=== PATIENT | male | born 1970 ===

== ENCOUNTER 2020-08-10 07:58 | Outpatient (REF) | payer OTHER, SELFPAY ==
[2020-08-10 10:55] LABS: Hematocrit 45.4 % (42-52); Hemoglobin 14.6 g/dl (14.0-18.0); Mean Corpuscular HGB Conc 32.2 g/dl (31.0-36.0); Mean Corpuscular Hemoglobin 30.1 pg (27.0-33.0); Mean Corpuscular Volume 93.6 fL (80-98); Mean Platelet Volume 10.1 fL (9.4-12.4); Platelet Count 244 X10*3/uL (160-400); Red Blood Count 4.85 X10*6/uL (4.60-5.80); Red Cell Distribution Width 13.2 % (11.0-16.0)
[2020-08-10 11:15] LABS: Alanine Aminotransferase 39 U/L (0-40); Albumin Level 4.3 g/dL (3.5-5.0); Alkaline Phosphatase 91 U/L (39-117); Anion Gap 11 (12-20); Aspartate Amino Transferase 24 U/L (5-37); Bilirubin Total 0.4 mg/dL (0.0-1.0); Blood Urea Nitrogen 19 mg/dL (9-16); Calcium 9.1 mg/dL (8.4-10.2); Carbon Dioxide 31 mmol/L (22-29); Chloride 104 mmol/L (96-108); Cholesterol 307 mg/dL; Estimated Glomerular Filt Rate > 60; Glucose Fasting 94 mg/dL (60-99); HDL Cholesterol 48 mg/dL; LDL Cholesterol Calculated 216 mg/dl; Potassium 4.5 mmol/l (3.3-5.1); Sodium 141 mmol/L (135-145); Total Protein 7.2 g/dL (6.5-8.0); Triglycerides 217 mg/dL
[2020-08-10 11:18] LABS: Creatinine Urine 228.82 mg/dL; Microalbum/Creatinine Ratio Ur 22.2 ug/mg cr
[2020-08-10 11:39] LABS: TSH reflex Free T4 2.08 mIU/mL (0.32-4.0)
== END 2020-08-10 07:59 | disposition home or self-care (01) ==
LOC: HO.WFDLDS 07:58
PROVIDERS: Visit Provider Physician Assistant
DX: I10 Essential (primary) hypertension (principal); E78.5 Hyperlipidemia, unspecified
CPT/HCPCS: 36415; 80053; 80061; 82043; 84443; 85027

== ENCOUNTER 2020-12-13 07:55 | Outpatient (REF) | payer OTHER, SELFPAY ==
[2020-12-13 09:01] LABS: Hematocrit 43.8 % (42-52); Hemoglobin 14.2 g/dl (14.0-18.0); Mean Corpuscular HGB Conc 32.4 g/dl (31.0-36.0); Mean Corpuscular Volume 92.4 fL (80-98); Platelet Count 248 X10*3/uL (160-400); Red Blood Count 4.74 X10*6/uL (4.60-5.80); Red Cell Distribution Width 13.2 % (11.0-16.0); White Blood Count 7.1 X10*3/uL (4.8-10.8)
[2020-12-13 09:16] LABS: Alanine Aminotransferase 37 U/L (0-40); Albumin Level 4.3 g/dL (3.5-5.0); Alkaline Phosphatase 105 U/L (39-117); Anion Gap 12 (12-20); Aspartate Amino Transferase 28 U/L (5-37); Bilirubin Total 0.5 mg/dL (0.0-1.0); Blood Urea Nitrogen 16 mg/dL (9-16); Calcium 9.8 mg/dL (8.4-10.2); Carbon Dioxide 30 mmol/L (22-29); Chloride 103 mmol/L (96-108); Cholesterol 240 mg/dL; Estimated Glomerular Filt Rate > 60; Glucose Fasting 97 mg/dL (60-99); HDL Cholesterol 50 mg/dL; LDL Cholesterol Calculated 160 mg/dl; Potassium 4.5 mmol/L (3.3-5.1); Sodium 140 mmol/L (135-145); Total Protein 7.2 g/dL (6.5-8.0); Triglycerides 150 mg/dL
[2020-12-13 09:22] LABS: TSH reflex Free T4 1.82 uIU/mL (0.32-4.0)
[2020-12-13 10:35] LABS: Creatinine Urine 191.78 mg/dL; Microalbum/Creatinine Ratio Ur 22.9 ug/mg cr
== END 2020-12-13 07:56 | disposition home or self-care (01) ==
LOC: HO.LAB 07:55
PROVIDERS: PCP Physician Assistant; Visit Provider Physician Assistant
DX: E78.2 Mixed hyperlipidemia (principal); I10 Essential (primary) hypertension
CPT/HCPCS: 36415; 80053; 80061; 82043; 84443; 85027

== ENCOUNTER 2021-01-27 08:16 | Outpatient (REF) | payer OTHER, SELFPAY ==
--- NOTE | ~2021-01-27 | XR_ITS ---
EXAMINATION: XR ELBOW, RIGHT CLINICAL INFORMATION: Pain. COMPARISON: None TECHNIQUE: AP, lateral, and oblique views of the right elbow. FINDINGS: There is no visible acute fracture, dislocation or loose bodies. There are moderate size enthesophytes along the anterior coronoid process and olecranon process. No abnormal joint effusion seen. XR/XR elbow RT min 3V IMPRESSION: Moderate enthesophytes along the anterior coronoid and olecranon process. No visible acute fracture, dislocation or loose body seen.
== END 2021-01-27 08:17 | disposition home or self-care (01) ==
LOC: HO.HOSX 08:16
PROVIDERS: Visit Provider Physician Assistant
DX: M77.11 Lateral epicondylitis, right elbow (principal); M76.892 Other specified enthesopathies of left lower limb, excluding foot
CPT/HCPCS: 20551; 73080; 99202; J1020

== ENCOUNTER 2021-04-11 09:04 | Outpatient (REF) | payer OTHER, SELFPAY ==
[2021-04-11 11:48] LABS: Hematocrit 43.5 % (42-52); Hemoglobin 14.4 g/dl (14.0-18.0); Mean Corpuscular HGB Conc 33.1 g/dl (31.0-36.0); Mean Corpuscular Hemoglobin 29.5 pg (27.0-33.0); Mean Corpuscular Volume 89.1 fL (80-98); Mean Platelet Volume 10.8 fL (9.4-12.4); Platelet Count 328 X10*3/uL (160-400); Red Blood Count 4.88 X10*6/uL (4.60-5.80); Red Cell Distribution Width 12.8 % (11.0-16.0)
[2021-04-11 12:12] LABS: Alanine Aminotransferase 38 U/L (0-40); Albumin Level 4.1 g/dL (3.5-5.0); Alkaline Phosphatase 103 U/L (39-117); Anion Gap 13 (12-20); Aspartate Amino Transferase 22 U/L (5-37); Bilirubin Total 0.4 mg/dL (0.0-1.0); Blood Urea Nitrogen 17 mg/dL (9-16); Calcium 9.6 mg/dL (8.4-10.2); Carbon Dioxide 28 mmol/L (22-29); Chloride 105 mmol/L (96-108); Cholesterol 244 mg/dL; Estimated Glomerular Filt Rate > 60; Glucose Fasting 101 mg/dL (60-99); HDL Cholesterol 42 mg/dL; LDL Cholesterol Calculated 166 mg/dl; Potassium 4.5 mmol/L (3.3-5.1); Sodium 141 mmol/L (135-145); Triglycerides 184 mg/dL
[2021-04-11 12:39] LABS: TSH reflex Free T4 1.78 uIU/mL (0.32-4.0)
[2021-04-11 13:09] LABS: Prostate Specific Antigen Scr 1.31 ng/mL (<0.05-4.0)
== END 2021-04-11 09:05 | disposition home or self-care (01) ==
LOC: HO.WFDLDS 09:04
PROVIDERS: Visit Provider Physician Assistant
DX: Z12.5 Encounter for screening for malignant neoplasm of prostate (principal); I10 Essential (primary) hypertension
CPT/HCPCS: 36415; 80053; 80061; 84153; 84443; 85027

== ENCOUNTER → 2021-06-30 14:55 | Outpatient (BNVA) | payer OTHER, SELFPAY | PROVIDERS: PCP Physician Assistant; Visit Provider Physician Assistant | DX: M77.11 Lateral epicondylitis, right elbow (principal) | CPT/HCPCS: 99212 ==

== ENCOUNTER 2021-08-15 08:16 | Outpatient (REF) | payer OTHER, SELFPAY ==
[2021-08-15 11:46] LABS: Alanine Aminotransferase 27 U/L (0-40); Albumin Level 4.1 g/dL (3.5-5.0); Alkaline Phosphatase 109 U/L (39-117); Anion Gap 11 (12-20); Aspartate Amino Transferase 25 U/L (5-37); Bilirubin Total 0.5 mg/dL (0.0-1.0); Blood Urea Nitrogen 17 mg/dL (9-16); Calcium 9.6 mg/dL (8.4-10.2); Carbon Dioxide 30 mmol/L (22-29); Chloride 104 mmol/L (96-108); Cholesterol 214 mg/dL; Estimated Glomerular Filt Rate > 60; Glucose Fasting 100 mg/dL (60-99); HDL Cholesterol 48 mg/dL; LDL Cholesterol Calculated 143 mg/dl; Potassium 3.9 mmol/L (3.3-5.1); Sodium 141 mmol/L (135-145); Total Protein 7.3 g/dL (6.5-8.0); Triglycerides 117 mg/dL
[2021-08-15 11:58] LABS: Estimated Average Glucose 111 mg/dL; Hemoglobin A1c % 5.5 %
[2021-08-15 12:51] LABS: Creatinine Urine 181.42 mg/dL; Microalbum/Creatinine Ratio Ur 30.8 ug/mg cr
== END 2021-08-15 08:17 | disposition home or self-care (01) ==
LOC: HO.WFDLDS 08:16
PROVIDERS: PCP Physician Assistant; Visit Provider Physician Assistant
DX: I10 Essential (primary) hypertension (principal); E78.2 Mixed hyperlipidemia
CPT/HCPCS: 36415; 80053; 80061; 82043; 83036

== ENCOUNTER 2021-08-16 08:57 | Outpatient (REF) | payer OTHER, SELFPAY ==
--- NOTE | 2021-08-16 08:59 | EMG_ITS ---
This is a 51-year-old man with 1 year history of right upper extremity pain and numbness. These symptoms originally started 8 years ago after an accident and then got better and recently he fell on ice and since then the symptoms have come back. On examination, he is alert, oriented with normal intellectual functions. Cranial nerves, there is no Tinel or Phalen sign. IMPRESSION: Rule out carpal tunnel syndrome, rule out cervical radiculopathy. Nerve conduction EMG study: Normal electrodiagnostic study of the right upper extremity with no electrodiagnostic evidence of carpal tunnel syndrome or nerve entrapment. Normal EMG of the right C5-T1 innervated muscles. MD ESAU Mcghee/RAJIV / [id number]
== END 2021-08-16 08:58 | disposition home or self-care (01) ==
LOC: HO.NEURO 08:57
PROVIDERS: Visit Provider Physician Assistant
DX: R20.0 Anesthesia of skin (principal); R20.2 Paresthesia of skin
CPT/HCPCS: 95885; 95910

== ENCOUNTER 2022-06-26 07:37 | Outpatient (REF) | payer OTHER, SELFPAY ==
[2022-06-26 11:35] LABS: Hematocrit 43.6 % (42.0-52.0); Hemoglobin 14.2 g/dl (14.0-18.0); Mean Corpuscular HGB Conc 32.6 g/dl (31.0-36.0); Mean Corpuscular Hemoglobin 30.1 pg (27.0-33.0); Mean Corpuscular Volume 92.6 fL (80.0-98.0); Mean Platelet Volume 10.7 fL (9.4-12.4); Platelet Count 266 X10*3/uL (160-400); Red Blood Count 4.71 X10*6/uL (4.60-5.80); White Blood Count 8.7 X10*3/uL (4.8-10.8)
[2022-06-26 12:06] LABS: Creatinine Urine 138.43 mg/dL; Microalbum/Creatinine Ratio Ur 62.1 ug/mg cr
[2022-06-26 13:57] LABS: Alanine Aminotransferase 35 U/L (0-40); Albumin Level 4.2 g/dL (3.5-5.0); Alkaline Phosphatase 116 U/L (39-117); Anion Gap 10 (12-20); Aspartate Amino Transferase 25 U/L (5-37); Bilirubin Total 0.4 mg/dL (0.0-1.0); Blood Urea Nitrogen 19 mg/dL (9-16); Calcium 9.5 mg/dL (8.4-10.2); Carbon Dioxide 29 mmol/L (22-29); Chloride 107 mmol/L (96-108); Cholesterol 268 mg/dL; Estimated Glomerular Filt Rate > 60; Glucose Fasting 97 mg/dL (60-99); HDL Cholesterol 50 mg/dL; LDL Cholesterol Calculated 194 mg/dl; Potassium 4.4 mmol/L (3.3-5.1); Prostate Specific Antigen Scr 0.95 ng/mL (<0.05-4.0); Sodium 142 mmol/L (135-145); TSH reflex Free T4 1.54 uIU/mL (0.32-4.0); Triglycerides 122 mg/dL
== END 2022-06-26 07:38 | disposition home or self-care (01) ==
LOC: HO.WFDLDS 07:37
PROVIDERS: Visit Provider Physician Assistant
DX: E78.2 Mixed hyperlipidemia (principal); I10 Essential (primary) hypertension; Z12.5 Encounter for screening for malignant neoplasm of prostate
CPT/HCPCS: 36415; 80053; 80061; 82043; 84153; 84443; 85027

== ENCOUNTER 2023-03-06 07:54 | Outpatient (AMB) | payer OTHER, SELFPAY ==
[2023-03-06 07:59] VITALS: BP 120/72; PULSE 78; O2SAT 98; BMI 29.6
--- NOTE | 2023-03-06 07:59 | MHC.PC.OV ---
Vital Signs 03/06/23 07:59 Height 5 ft 10 in Weight 206 lb BMI 29.6 BP 120/72 Blood Pressure Location Lt brachial Position Sitting Pulse 78 Pulse Source Pulse Oximeter Pulse Oximetry (%) 98 Oxygen Delivery Method Room Air Intake Visit Reasons: HTN, HLD, Smoking Cessation Allergies Tetanus Vaccines and Toxoid Allergy (Unknown, Verified 03/06/23 08:07) Unknown Medication List - Last Reconciled 03/06/23 by Rojelio Curry PA-C amlodipine 10 mg PO DAILY 90 days atorvastatin 40 mg PO DAILY 90 days baclofen 10 mg PO BEDTIME 15 days cetirizine (Zyrtec) 10 mg PO DAILY 30 days diclofenac sodium 3% 1 appl topical BID 30 days erythromycin 0.5 inches ophthalmic (eye) TID 7 days naproxen 500 mg PO BID 30 days nicotine 1 patch transdermal Q24H 14 days nicotine 1 patch transdermal DAILY 14 days nicotine 1 patch transdermal DAILY 28 days Tobacco use date assessed: 03/06/23 Dental Screening Dental Screen Date: 03/06/23 Did you have a dental visit in the last 12 months?: No Did you have a dental problem in the last 6 months where you did not have access to dental care?: No Was dental information given to patient?: No HPI HTN, HLD, Smoking Cessation HPI Details Patient is a 53 y/o M here today for follow-up visit. Patient has a past medical history significant for tobacco abuse, hypertension, hyperlipidemia. ?? .. HLD:? ?Has if to get more recent fasting lipid panel.? Continues on atorvastatin 20 mg. ?smoker:?Unfortunately still smoking 2-3 cigarettes per day with morning coffee. he does understand he needs to completely quit smoking.? Has intermittently been using the nicotine patches which has helped to reduce his smoking. .. Right elbow pain:? He reports his right elbow pain is still evident though is able to do his job and all his activities of daily living.? He does use naproxen with decent affect.? Reports muscle relaxer does help him at times will of elevated pain .. Hypertension:? Blood pressure today in office acceptable. He has been somewhat adherent to the use of amlodipine 10 mg.? He otherwise denies any headaches, vision issues or chest discomforts. He will like to continue working on lifestyle to reduce his weight and be more adherent to a low-sodium diet reduce his blood pressure. 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 Cognitive needs: No Hearing needs: No Vision needs: No Questionnaire Thrive Questionnaire Date Thrive assessed: 03/06/23 I am a: Patient What is your living situation today?: I have a steady place to live Within the past 12 months, did the food you bought not last and you didn't have the money to get more?: Never true Within the past 12 months, did you worry whether your food would run out before you got money to buy more?: Never true Do you have trouble paying for medicines?: No Do you have trouble getting transportation to medical appointments?: No Do you have trouble paying your heating and electricity bill?: No Do you have trouble taking care of your child, family member or friend?: No Do you have trouble with day-to-day activities such as bathing, preparing meals, shopping, managing finances, etc.?: No Are you currently unemployed and looking for a job?: No Are you interested in more education?: No Currently or been in a relationship where the following occur: no concerns reported AUDIT C Alcohol Use Questionnaire (AUDIT-C) 1. How often do you have a drink containing alcohol?: Monthly or less 2. How many drinks containing alcohol do you have on a typical day when you are drinking?: 1 or 2 Total Score: 1 BRETT-7 AMB Questionnaire BRETT-7 Date BRETT - 7 assessed: 03/06/23 Feeling nervous, anxious, or on edge: 0 = Not at all Not being able to stop or control worryin = Not at all Worrying too much about different things: 0 = Not at all Trouble relaxin = Not at all Being so restless that it is hard to sit still: 0 = Not at all Becoming easily annoyed or irritable: 0 = Not at all Feeling afraid as if something awful might happen: 0 = Not at all Total BRETT-7 score (0-4 normal; 5-9 mild; 10-14 moderate; 15-21 severe): 0 Source: Developed by Drs. Horacio Branham, Rebecca Layton, Pranav Salmeron and colleagues, with an educational leigh from [email or web address] Review of Systems Const Denies headache(s) Eyes Denies loss of vision ENT Denies vertigo, Denies dizziness, Denies headache(s) and Denies sore throat Card Denies chest pain, Denies leg edema and Denies lightheadedness Resp Denies cough, Denies hemoptysis and Denies wheezing GI Denies abdominal pain, Denies melena, Denies constipation, Denies diarrhea and Denies vomiting Denies dysuria, Denies urinary frequency and Denies urinary urgency Musc Denies arthralgias, Denies joint swelling, Denies numbness and Denies tingling Neuro Denies Abnormal speech present, Denies behavioral changes, Denies vertigo, Denies dizziness, Denies headache(s), Denies loss of vision, Denies memory loss, Denies numbness and Denies tingling Psych Denies anxiety, Denies behavioral changes, Denies depression, Denies memory loss and Denies panic attacks Mateusz/Lymph Denies easy bleeding and Denies easy bruising Aller/Immun Denies wheezing Physical exam (Primary Care) Vital Signs: Last Vital Signs Pulse 78 03/06/23 07:59 BP 120/72 03/06/23 07:59 Pulse Ox 98 03/06/23 07:59 Oxygen Delivery Method Room Air 03/06/23 07:59 BMI result Body Mass Index 29.6 Tobacco/Smoking Status: Tobacco use Status Tobacco use date assessed 03/06/23 03/06/23 08:03 Patient Tobacco Use Status Current everyday Tobacco 03/06/23 08:03 Tobacco use type Cigarette 03/06/23 08:03 e-Cigarette/Vaping Use Never Used 03/06/23 08:03 Are you ready to quit: No Tobacco cessation counseling provided: Yes Relapse Prevention: discussed the importance of a supportive environment, discussed negative mood or depression after quitting and weight gain after smoking is common Number of minutes spent counselin CPT code: 98443 - 4-10 Minutes Thrive Assessment: Date of Thrive Assessment Date Thrive assessed 03/06/23 03/06/23 08:03 Currently or been in a relationship where the following occur: no concerns reported Const General: healthy appearing, no acute distress, alert and awake Nutritional Appearance: well nourished Orientation/consciousness: oriented to person, oriented to place and oriented to time HENMT Ears: TM's normal bilaterally General nose exam: Normal nasal mucous membranes and turbinates present Eyes Conjunctivae: conjunctivae normal Sclerae: sclerae normal Pupils: Equal, round and reactive pupils present Neck Neck: Yes no lymphadenopathy and Yes no JVD Thyroid: Thyroid normal Carotids: no bruits Resp Effort & Inspection: normal respiratory effort and not tachypneic Auscultation: no crackles, no rales, no rhonchi and no wheezes Cardio Rate: regular rate Rhythm: regular rhythm Heart sounds: no murmurs and normal S1 and S2 GI Palpation (GI): Soft to palpation, nontender, no hepatomegaly and no splenomegaly Auscultation: normal bowel sounds Skin General skin exam: no rashes or lesions noted and dry skin Neuro General: oriented to person, oriented to place and oriented to time Cranial nerves: Yes Equal, round and reactive pupils present Speech: No Abnormal speech present Gait exam (Neuro): Normal gait present Motor exam (neuro): no tremor noted Extrem Right upper extremity: full ROM Left upper extremity: full ROM Right lower extremity: full ROM; no edema Left lower extremity: full ROM; no edema Psych Mental Status: mental status grossly normal Speech and movement: Normal speech and movement present Affect: normal affect Attitude: cooperative Thought process: Normal thought process present Assessment and Plan Assessment & Plan (1) HLD (hyperlipidemia): Code(s): E78.5 - Hyperlipidemia, unspecified Qualifiers: Hyperlipidemia type: mixed hyperlipidemia Qualified Code(s): E78.2 - Mixed hyperlipidemia Plan: Patient continues on a 12 a statin, unclear if compliant with this medication. Will recheck fasting lipid panel to assure appropriate total cholesterol LDL. Goal LDL to be below 130 (2) HTN (hypertension): Code(s): I10 - Essential (primary) hypertension Qualifiers: Hypertension type: essential hypertension Qualified Code(s): I10 - Essential (primary) hypertension Plan: Patient's blood pressure acceptable today in office. Will continue his current dose of amlodipine 10 mg. Goal blood pressures to be below 140/90 (3) Lateral epicondylitis, right elbow: Code(s): M77.11 - Lateral epicondylitis, right elbow Plan: As per HPI (4) Tobacco dependence: Code(s): F17.200 - Nicotine dependence, unspecified, uncomplicated Plan: Patient does report cutting down his smoking. Reports smoking only in the morning with coffee. He does have nicotine patches available to him. Not interested in any medications to help him completely quit smoking. Orders: Orders Microalbumin, Random (w Creat) 03/06/23 I10 - Essential (primary) hypertension Comprehensive [place]. Panel Fast 03/06/23 I10 - Essential (primary) hypertension Lipid Panel 03/06/23 E78.2 - Mixed hyperlipidemia Prostate Specific Antigen Scr 03/06/23 E78.2 - Mixed hyperlipidemia, Z12.5 - Encounter for screening for malignant neoplasm of prostate Medications: Changed From baclofen 10 mg PO BEDTIME 15 days 15 tabs 0RF M76.892 - Other specified enthesopathies of left lower limb, excluding foot To baclofen 10 mg PO BEDTIME 30 days 30 tabs 0RF M76.892 - Other specified enthesopathies of left lower limb, excluding foot Refilled atorvastatin 40 mg PO DAILY 90 days 90 tabs 1RF E78.2 - Mixed hyperlipidemia amlodipine 10 mg PO DAILY 90 days 90 tabs 1RF I10 - Essential (primary) hypertension Discontinued erythromycin Discontinued Reason: Doctor's Order 0.5 inches ophthalmic (eye) TID 7 days 3.5 grams 0RF Coding Level of Care Code Est Pt Level 4 (51214) Diagnoses HLD (hyperlipidemia) E78.2 Hyperlipidemia type: mixed hyperlipidemia HTN (hypertension) I10 Hypertension type: essential hypertension Lateral epicondylitis, right elbow M77.11 Tobacco dependence F17.200 Additional Codes Vital Signs *Quality* - CPT code: 46588 - 4-10 Minutes ([id number])
== END 2023-03-06 08:27 | disposition home or self-care (01) ==
PROVIDERS: PCP Physician Assistant; Visit Provider Physician Assistant
DX: E78.2 Mixed hyperlipidemia (principal); I10 Essential (primary) hypertension; M77.11 Lateral epicondylitis, right elbow; F17.210 Nicotine dependence, cigarettes, uncomplicated
CPT/HCPCS: 99214

== ENCOUNTER 2023-07-08 07:14 | Outpatient (REF) | payer OTHER, SELFPAY ==
[2023-07-08 11:34] LABS: Hematocrit 44.4 % (42.0-52.0); Hemoglobin 14.7 g/dl (14.0-18.0); Mean Corpuscular HGB Conc 33.1 g/dl (31.0-36.0); Mean Corpuscular Hemoglobin 30.5 pg (27.0-33.0); Mean Corpuscular Volume 92.1 fL (80.0-98.0); Mean Platelet Volume 10.7 fL (9.4-12.4); Platelet Count 249 X10*3/uL (160-400); Red Blood Count 4.82 X10*6/uL (4.60-5.80); Red Cell Distribution Width 13.7 % (11.0-16.0); White Blood Count 7.3 X10*3/uL (4.8-10.8)
[2023-07-08 12:10] LABS: Alanine Aminotransferase 26 U/L (0-40); Alkaline Phosphatase 100 U/L (39-117); Anion Gap 13 (12-20); Aspartate Amino Transferase 22 U/L (5-37); Bilirubin Total 0.5 mg/dL (0.0-1.0); Blood Urea Nitrogen 17 mg/dL (9-16); Carbon Dioxide 25 mmol/L (22-29); Chloride 107 mmol/L (96-108); Cholesterol 257 mg/dL (<200); Estimated Glomerular Filt Rate > 60; Glucose Fasting 98 mg/dL (60-99); HDL Cholesterol 45 mg/dL (>40); LDL Cholesterol Calculated 177 mg/dL (<100); Potassium 4.1 mmol/L (3.3-5.1); Sodium 141 mmol/L (135-145); Triglycerides 175 mg/dL (<150)
[2023-07-08 12:11] LABS: Microalbum/Creatinine Ratio Ur 49.7 ug/mg cr (<30)
[2023-07-08 12:24] LABS: Prostate Specific Antigen Scr 1.65 ng/mL (<0.05-4.0)
[2023-07-08 12:36] LABS: TSH reflex Free T4 1.94 uIU/mL (0.32-4.0)
== END 2023-07-08 07:15 | disposition home or self-care (01) ==
LOC: HO.WFDLDS 07:14
PROVIDERS: Visit Provider Physician Assistant
DX: I10 Essential (primary) hypertension (principal); E78.2 Mixed hyperlipidemia; Z12.5 Encounter for screening for malignant neoplasm of prostate
CPT/HCPCS: 36415; 80053; 80061; 82043; 82570; 84153; 84443; 85027

== ENCOUNTER 2023-08-03 14:40 | Emergency (ER) | payer OTHER, SELFPAY ==
--- NOTE | ~2023-08-03 | XR_ITS ---
EXAMINATION: XR LEFT ANKLE, 2 VIEWS XR LEFT FOOT, 3 VIEWS CLINICAL INFORMATION: Pain status post inversion COMPARISON: None available. TECHNIQUE: 2 views of the left ankle 3 views of the left foot FINDINGS: No acute visible fracture or dislocation. Ankle mortise is symmetric. Enthesopathy at the Achilles tendon insertion site. Mild spurring the dorsal midfoot. Joint spaces and alignment are otherwise maintained. Soft tissues are unremarkable. XR/XR ankle LT min 3V IMPRESSION: 1. No acute visible fracture or dislocation. 2. Enthesopathy at the Achilles tendon insertion site.
--- NOTE | ~2023-08-03 | XR_ITS ---
EXAMINATION: XR LEFT ANKLE, 2 VIEWS XR LEFT FOOT, 3 VIEWS CLINICAL INFORMATION: Pain status post inversion COMPARISON: None available. TECHNIQUE: 2 views of the left ankle 3 views of the left foot FINDINGS: No acute visible fracture or dislocation. Ankle mortise is symmetric. Enthesopathy at the Achilles tendon insertion site. Mild spurring the dorsal midfoot. Joint spaces and alignment are otherwise maintained. Soft tissues are unremarkable. XR/XR foot LT min 3V IMPRESSION: 1. No acute visible fracture or dislocation. 2. Enthesopathy at the Achilles tendon insertion site.
[2023-08-03 15:50] VITALS: BP 141/85; PULSE 88; RESP 18; TEMP 36.8; O2SAT 95; BMI 30.2
--- NOTE | 2023-08-03 15:50 | ED.LOWEXIN ---
HPI - Extremity Injury (Lower) General Chief Complaint: Extremity Injury, Upper Stated Complaint: L foot injury Time Seen by Provider: 08/03/23 17:59 Source: patient Mode of arrival: ambulatory Limitations: no limitations History of Present Illness HPI Narrative: 53 yo male here with complaints of left foot pain after an inversion injury after missing a stair 3 weeks ago. Pain with WB. No numbness, tingling, weakness, redness or warmth. Related Data Previous Rx's Medication Instructions Recorded diclofenac sodium 3 % topical gel 1 appl topical BID 30 days #100 09/21/21 grams naproxen 500 mg tablet 500 mg PO BID 30 days #60 tabs 12/25/21 nicotine 7 mg/24 hr daily 1 patch transdermal Q24H 14 days 12/25/21 transdermal patch #14 ea nicotine 14 mg/24 hr daily 1 patch transdermal DAILY 28 days 06/26/22 transdermal patch #28 ea nicotine 21 mg/24 hr daily 1 patch transdermal DAILY 14 days 06/26/22 transdermal patch #14 ea cetirizine 10 mg tablet (Zyrtec) 10 mg PO DAILY 30 days #30 tabs 09/18/22 amlodipine 10 mg tablet 10 mg PO DAILY 90 days #90 tabs 03/06/23 atorvastatin 40 mg tablet 40 mg PO DAILY 90 days #90 tabs 03/06/23 baclofen 10 mg tablet 10 mg PO BEDTIME 30 days #30 tabs 03/06/23 ibuprofen 800 mg tablet 800 mg PO Q8H PRN pain #30 tabs 08/03/23 Allergies Allergy/AdvReac Type Severity Reaction Status Date / Time Tetanus Vaccines and Toxoid Allergy Unknown Unknown Verified 08/03/23 15:49 Review of Systems Review of Systems: Yes all other systems are reviewed and are negative Constitutional: Constitutional: Reports no additional constitutional complaints, Denies body ache(s), Denies chills, Denies fever(s), Denies headache(s) and Denies weakness Eyes: Eyes: Reports no additional eye complaints and Denies change in vision ENT: Reports system reviewed and no additional complaints, except as documented, Denies dizziness, Denies headache(s), Denies nasal congestion, Denies nasal discharge and Denies neck pain Cardiovascular: Cardiovascular: Reports no additional cardiovascular complaints, Denies chest pain, Denies leg edema and Denies dyspnea Respiratory: Respiratory: Reports no additional respiratory complaints, Denies cough and Denies dyspnea Gastrointestinal: Gastrointestinal: Reports no additional gastrointestinal complaints, Denies abdominal pain, Denies diarrhea, Denies nausea and Denies vomiting Genitourinary: Genitourinary: Denies urinary incontinence Musculoskeletal: Musculoskeletal: Reports no additional musculoskeletal complaints, Denies back pain, Reports arthralgias, Reports joint swelling, Denies limited range of motion, Denies neck pain, Denies numbness and Denies tingling Integumentary/Breasts: Skin/Breast: Reports system reviewed and no additional complaints, except as docu and Denies rash Neurologic: Reports system reviewed and no additional complaints, except as documented, Denies Abnormal speech present, Denies dizziness, Denies headache(s), Denies numbness, Denies tingling and Denies weakness PMFSH Past Medical History Attestation statement: The following information was validated with the patient. Source: old records reviewed and nursing notes reviewed Onset Date is defined in the Problem List Problems that require an onset date and time if occurred within 24 hrs of arrival to the ED Aortic Dissection and Rupture; Neurologic impairment; Cardiopulmonary Arrest; Endotracheal Intubation; Insertion or Replacement of Mechanical Circulatory Assist Device Surgical History History of knee surgery Family History Family History Father Pancreatic cancer Mother Hypertension Social History Social History Housing: House Alcohol intake: current Alcohol intake frequency: a few times a month Alcohol type: wine and hard liquor Patient Tobacco Use Status: Current everyday Tobacco user Tobacco use type: Cigarette Cigarettes Per Day: 10 e-Cigarette/Vaping Use: Never Used Advance Directives: No Advance Directives Information Provided: No service: No Current occupational status: employed 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 Cognitive needs: No Hearing needs: No Vision needs: No Physical Exam Vital Signs: Vital Signs: Last Vital Signs Temp 98.3 F 08/03/23 15:50 Pulse 85 08/03/23 18:07 Resp 18 08/03/23 18:07 BP 139/92 H 08/03/23 18:07 Pulse Ox 96 08/03/23 18:07 O2 Del Method Room Air 08/03/23 18:07 BMI result Body Mass Index 30.2 Const: General: cooperative, healthy appearing, comfortable and no acute distress Orientation/consciousness: patient oriented x3 Limitations: no limitations HEENT: Head: Yes normal to inspection Ears: hearing grossly normal bilaterally General nose exam: Normal external nose present Face and sinus: Yes normal facial exam Mouth: Normal oral and palatal mucosa present Throat: Yes posterior oropharynx normal Eyes: General: appearance normal, both eyes and all related structures Pupils: Equal, round and reactive pupils present Neck: Neck: Yes normal visual inspection Chest: Chest palpation & inspection: normal inspection of the chest Resp: Effort & Inspection: normal respiratory effort Auscultation: clear to auscultation bilaterally Cardio: Rate: regular rate Rhythm: regular rhythm Peripheral pulses: Peripheral pulses 2+ throughout GI: Inspection: Yes normal to inspection Palpation (GI): Soft to palpation and nontender Auscultation: normal bowel sounds Back/Spine/Pelvis: Thoracic/Lumbar Spine: thoracic and lumbar spine normal to inspection Skin: General skin exam: no rashes or lesions noted Neuro: General: patient oriented x3, no focal motor deficits and normal sensation to monofilament Cranial nerves: Yes Equal, round and reactive pupils present Cognition (Neuro): normal cognition Speech: No Abnormal speech present Gait exam (Neuro): Normal gait present Motor exam (neuro): 5/5 motor strength present throughout Extrem: Other: Pain on palpation over the left dorsal foot with mild swelling. No erythema or warmth. No pain on palpation over the ankle or posterior lower leg. Negative king sign. FROM of the ankle both passively and actively. Normal sensation. 2+ DP/PT pulses. General: Yes normal to inspection Course Course Course Narrative: This is an RME: Additional HPI, ROS, PE not included below will be deferred to primary provider. This is a 53 year old male presenting to the ER with a complaint of left foot injury. States that 3 weeks ago he inverted his left foot and ankle. Has had increasing pain and swelling since. Tenderness palpation, no erythema or edema. Plan: X-rays Medical Decision Making Medical Decision Making MDM Narrative: 53 yo male here with complaints of left foot pain after an inversion injury after missing a stair 3 weeks ago. Pain with WB. No numbness, tingling, weakness, redness or warmth. Pain on palpation over the left dorsal foot with mild swelling. No erythema or warmth. No pain on palpation over the ankle or posterior lower leg. Negative king sign. FROM of the ankle both passively and actively. Normal sensation. 2+ DP/PT pulses. Will check x-rays Differential Diagnosis Differential Diagnoses: The differential diagnosis associated with the presentation includes sprain, strain, fracture low concern for dislocation, complex fracture or dislocation Admission/Observation Consideration of admission/observation: Escalation of care including admission/observation considered low concern for dislocation, complex fracture or dislocation requiring advanced imaging, urgent ortho consultation Independent Interpretation I performed an independent interpretation of an: Plain X-Ray Interpretation: I independently reviewed the x-ray and agree with the rad report Radiology Impression Discussion of test interpretation with radiology: I have reviewed the radiologist's reading. Radiologist Impression: Launch?Image [address] [address] XRay Report Signed Patient: Tommy Atkinson MR#: [id number] : 1970 Acct:[id number] Age/Sex: 53 / M ADM Date: 08/03/23 Loc: HO.ED Attending Dr: Ordering Physician: Sofie Yoon Date of Service: 08/03/23 Procedure(s): XR ankle LT min 3V Accession Number(s): [id number] cc: Rojelio Curry PA-C; Sofie Yoon~ EXAMINATION: XR LEFT ANKLE, 2 VIEWS XR LEFT FOOT, 3 VIEWS CLINICAL INFORMATION: Pain status post inversion COMPARISON: None available. TECHNIQUE: 2 views of the left ankle 3 views of the left foot FINDINGS: No acute visible fracture or dislocation. Ankle mortise is symmetric. Enthesopathy at the Achilles tendon insertion site. Mild spurring the dorsal midfoot. Joint spaces and alignment are otherwise maintained. Soft tissues are unremarkable. XR/XR ankle LT min 3V IMPRESSION: 1. No acute visible fracture or dislocation. 2. Enthesopathy at the Achilles tendon insertion site. Tests considered The following testing was considered but not selected: low concern for vascular injury, complex fx or disclocation requiring advanced imaging Prescription Management I considered prescription management with: Pain Medication Procedures Orthopedic Splinting/Casting Injury #1: Side: left Lower Extremity Injury Location: foot Lower Extremity Immobilizer: Jaylon wrap Other Orthopedic Equipment: crutches Discharge Plan Discharge Clinical Impression: Foot sprain Patient Disposition: Home, Self-Care Instructions: Crutch Instructions (ED), How to Use an Elastic Bandage (ED), Foot Sprain (ED) Additional Instructions: ice, elevation, rest Use the Jaylon wrap and crutches as needed for pain Take ibuprofen for pain as needed Follow-up with primary care doctor for any continued symptoms Prescriptions: New ibuprofen 800 mg tablet 800 mg PO Q8H PRN (Reason: pain) Qty: 30 0RF No Action diclofenac sodium 3 % gel 1 appl topical BID 30 Days Qty: 100 0RF cetirizine [Zyrtec] 10 mg tablet 10 mg PO DAILY 30 Days Qty: 30 2RF baclofen 10 mg tablet 10 mg PO BEDTIME 30 Days Qty: 30 0RF atorvastatin 40 mg tablet 40 mg PO DAILY 90 Days Qty: 90 1RF amlodipine 10 mg tablet 10 mg PO DAILY 90 Days Qty: 90 1RF nicotine 7 mg/24 hr patch 24 hour 1 patch transdermal Q24H 14 Days Qty: 14 0RF naproxen 500 mg tablet 500 mg PO BID 30 Days Qty: 60 3RF nicotine 14 mg/24 hr patch 24 hour 1 patch transdermal DAILY 28 Days Qty: 28 0RF nicotine 21 mg/24 hr patch 24 hour 1 patch transdermal DAILY 14 Days Qty: 14 1RF Referrals: Rojelio Curry PA-C [Primary Care Provider] - 1 week
[2023-08-03 18:07] VITALS: BP 139/92; PULSE 85; RESP 18; O2SAT 96
[2023-08-03] MEDS: Ibuprofen 600 MG TABLET PO (18:42)
== END 2023-08-03 18:52 | disposition home or self-care (01) ==
PROVIDERS: Emergency Provider Internal Medicine; PCP Physician Assistant
DX: S93.692A Other sprain of left foot, initial encounter (principal); W10.8XXA Fall (on) (from) other stairs and steps, initial encounter; Y93.89 Activity, other specified; Y92.9 Unspecified place or not applicable; Y99.9 Unspecified external cause status
CPT/HCPCS: 73610; 73630; 99283

== ENCOUNTER 2023-08-19 07:24 | Outpatient (REF) | payer OTHER, SELFPAY ==
[2023-08-19 11:59] LABS: Alanine Aminotransferase 24 U/L (0-40); Albumin Level 4.3 g/dL (3.5-5.0); Alkaline Phosphatase 112 U/L (39-117); Anion Gap 13 (12-20); Aspartate Amino Transferase 20 U/L (5-37); Bilirubin Total 0.5 mg/dL (0.0-1.0); Blood Urea Nitrogen 17 mg/dL (9-16); Calcium 9.9 mg/dL (8.4-10.2); Carbon Dioxide 28 mmol/L (22-29); Chloride 105 mmol/L (96-108); Cholesterol 265 mg/dL (<200); Estimated Glomerular Filt Rate > 60; Glucose Fasting 104 mg/dL (60-99); HDL Cholesterol 50 mg/dL (>40); LDL Cholesterol Calculated 188 mg/dL (<100); Potassium 4.6 mmol/L (3.3-5.1); Sodium 141 mmol/L (135-145); Total Protein 7.6 g/dL (6.5-8.0); Triglycerides 137 mg/dL (<150)
[2023-08-19 12:17] LABS: Microalbum/Creatinine Ratio Ur 48.3 ug/mg cr (<30)
== END 2023-08-19 07:25 | disposition home or self-care (01) ==
LOC: HO.WFDLDS 07:24
PROVIDERS: Visit Provider Physician Assistant
DX: R80.9 Proteinuria, unspecified (principal); E78.2 Mixed hyperlipidemia; I10 Essential (primary) hypertension
CPT/HCPCS: 36415; 80053; 80061; 82043; 82570

== ENCOUNTER 2023-08-27 08:37 | Outpatient (AMB) | payer OTHER, SELFPAY ==
[2023-08-27 09:29] VITALS: BP 140/82; PULSE 88; O2SAT 97; BMI 29.9
--- NOTE | 2023-08-27 09:29 | A.OFFPC_ITS ---
Vital Signs 08/27/23 09:29 Height 5 ft 11 in Weight 214 lb 2 oz BMI 29.9 BP 140/82 H Blood Pressure Location Lt brachial Position Sitting Pulse 88 Pulse Source Pulse Oximeter Pulse Oximetry (%) 97 Oxygen Delivery Method Room Air Intake Visit Reasons: PE Intake Note: Patient is here today for a physical. Internal Medicine Physician Assistant Required: No Accompanied by: Self / Same As Patient Allergies Tetanus Vaccines and Toxoid Allergy (Unknown, Verified 08/27/23 10:09) Unknown Medication List - Last Reconciled 08/27/23 by Rojelio Curry PA-C amlodipine 10 mg PO DAILY 90 days atorvastatin 40 mg PO DAILY 90 days baclofen 10 mg PO BEDTIME 30 days cetirizine (Zyrtec) 10 mg PO DAILY 30 days diclofenac sodium 3% 1 appl topical BID 30 days ibuprofen 800 mg PO Q8H PRN naproxen 500 mg PO BID 30 days nicotine 1 patch transdermal Q24H 14 days nicotine 1 patch transdermal DAILY 14 days nicotine 1 patch transdermal DAILY 28 days Tobacco use date assessed: 08/27/23 Dental Screening Dental Screen Date: 08/27/23 Did you have a dental visit in the last 12 months?: No Did you have a dental problem in the last 6 months where you did not have access to dental care?: No Was dental information given to patient?: Patient has dentist HPI PE HPI Details Patient is a 53 y/o M here today for a routine annual physical. Patient has a past medical history significant for tobacco abuse, hypertension, hyperlipidemia. ?? .. HLD:? ?Most recent lipid panel showing elevated total cholesterol and LDL. He reports he has not been too compliant with using his cholesterol medication in this is unclear. He reports he was start taking cholesterol medication on a daily basis. ?smoker:?Unfortunately still smoking 2-3 cigarettes per day with morning coffee. he does understand he needs to completely quit smoking.? Has intermittently been using the nicotine patches which has helped to reduce his smoking. .. Hypertension:? Blood pressure today in office elevated. Noted microalbuminuria as well. He is concerned about this and would like to better control his blood pressure. Will start hydrochlorothiazide as an additional anti hypertensive He will like to continue working on lifestyle to reduce his weight and be more adherent to a low-sodium diet reduce his blood pressure Vaccine: Up-to-date with pneumonia vaccine. Declines COVID and FLu vaccine. needs Tdap (had a reaction in the past to the vaccine) Colonoscopy: ?had a colonoscopy at age 47 at [facility]- reports normal findings Laboratory Tests 04/11/21 04/11/21 08/15/21 09:20 09:20 08:20 RBC Creatinine Fasting Glucose 100 H Hemoglobin A1c % 5.5 Cholesterol 244 214 Triglycerides LDL Cholesterol, C alc 166 Urine Microalbumin 08/15/21 07/08/23 07/08/23 08:20 07:16 07:16 RBC 4.82 Creatinine Fasting Glucose Hemoglobin A1c % Cholesterol 257 H Triglycerides LDL Cholesterol, C alc 143 Urine Microalbumin 07/08/23 07/08/23 07/08/23 07:16 07:16 07:16 RBC Creatinine Fasting Glucose Hemoglobin A1c % Cholesterol Triglycerides 175 H LDL Cholesterol, C alc 177 H Urine Microalbumin 120.0 08/19/23 08/19/23 08/19/23 07:20 07:20 07:20 RBC Creatinine 0.89 Fasting Glucose Hemoglobin A1c % Cholesterol 265 H Triglycerides 137 LDL Cholesterol, C alc 188 H Urine Microalbumin 08/19/23 07:25 RBC Creatinine Fasting Glucose Hemoglobin A1c % Cholesterol Triglycerides LDL Cholesterol, C alc Urine Microalbumin 135.0 [facility] History History of knee surgery Family History (Updated 08/27/23 @ 10:13 by Rojelio Curry PA-C) Father Pancreatic cancer Mother Hypertension Brother ESRD (end stage renal disease) Social History (Updated 08/27/23 @ 10:14 by Rojelio Curry PA-C) Housing: House Alcohol intake: current Alcohol intake frequency: a few times a month Alcohol type: wine and hard liquor Patient Tobacco Use Status: Current everyday Tobacco user Tobacco use type: Cigarette Cigarettes Per Day: 10 (due to stress) e-Cigarette/Vaping Use: Never Used service: No Current occupational status: employed 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 1. Little interest or pleasure in doing things: not at all 2. Feeling down, depressed, or hopeless: not at all 3. Trouble falling or staying asleep, or sleeping too much: not at all 4. Feeling tired or having little energy: not at all 5. Poor appetite or overeating: not at all 6. Feeling bad about yourself - or that you are a failure or have let yourself or your family down: not at all 7. Trouble concentrating on things, such as reading the newspaper or watching television: not at all 8. Moving or speaking so slowly that other people could have noticed. Or the opposite - being so fidgety or restless that you have been moving around a lot more than usual: not at all 9. Thoughts that you would be better off or of hurting yourself in some way: not at all Total score: 0 Depression Screening Interpretation: Negative Depression Screening Done: Yes 63644 - PHQ-9 Billing: Yes Source: Developed by Drs. Horacio Branham, Rebecca Layton, Pranav Salmeron and colleagues, with an educational leigh from [employer]. Thrive Questionnaire Date Thrive assessed: 08/27/23 I am a: Patient What is your living situation today?: I have a steady place to live Within the past 12 months, did the food you bought not last and you didn't have the money to get more?: Never true Within the past 12 months, did you worry whether your food would run out before you got money to buy more?: Never true Do you have trouble paying for medicines?: No Do you have trouble getting transportation to medical appointments?: No Do you have trouble paying your heating and electricity bill?: No Do you have trouble taking care of your child, family member or friend?: No Do you have trouble with day-to-day activities such as bathing, preparing meals, shopping, managing finances, etc.?: No Are you currently unemployed and looking for a job?: No Are you interested in more education?: No Please select the resources that you would like help with: None Currently or been in a relationship where the following occur: no concerns reported THRIVE Score: 0 AUDIT C Alcohol Use Questionnaire (AUDIT-C) 1. How often do you have a drink containing alcohol?: Monthly or less 2. How many drinks containing alcohol do you have on a typical day when you are drinking?: 1 or 2 3. How often do you have six or more drinks on one occasion?: Never Total Score: 1 BRETT-7 AMB Questionnaire BRETT-7 Date BRETT - 7 assessed: 08/27/23 Feeling nervous, anxious, or on edge: 2 = More than half the days Not being able to stop or control worryin = Not at all Worrying too much about different things: 3 = Nearly every day Trouble relaxin = Nearly every day Being so restless that it is hard to sit still: 3 = Nearly every day Becoming easily annoyed or irritable: 3 = Nearly every day Feeling afraid as if something awful might happen: 3 = Nearly every day Total BRETT-7 score (0-4 normal; 5-9 mild; 10-14 moderate; 15-21 severe): 17 Source: Developed by Drs. Horacio Branham, Rebecca Layton, Pranav Salmeron and colleagues, with an educational leigh from [employer]. BRETT-7 Assessment Billing BRETT-7 Assessment Tool: BRETT-7 Assessment 36530 Review of Systems Const Denies body aches, Denies chills, Denies excessive sweating, Denies fatigue, Denies fever(s) and Denies headache(s) Eyes Denies blurry vision ENT Denies dysphagia, Denies vertigo, Denies dizziness, Denies headache(s), Denies hearing loss and Denies tinnitus Card Denies chest pain, Denies chest pain with activity, Denies syncope, Denies irregular heart rhythm and Denies dyspnea Resp Denies chest congestion, Denies cough, Denies hemoptysis, Denies dyspnea and Denies wheezing GI Denies abdominal pain, Denies melena, Denies hematochezia, Denies coffee ground emesis, Denies dysphagia, Denies diarrhea, Denies nausea and Denies vomiting Denies difficulty urinating, Denies dysuria, Denies urinary frequency, Denies urinary hesitancy and Denies urinary urgency Musc Denies arthralgias, Denies limited range of motion, Denies muscle cramps and Denies muscle weakness Skin/Breast Denies rash and Denies skin ulcer Neuro Denies Abnormal speech present, Denies confusion, Denies vertigo, Denies dizziness, Denies syncope, Denies headache(s), Denies memory loss and Denies seizure-like activity Psych Denies anxiety, Denies confusion, Denies depression, Denies memory loss, Denies panic attacks and Denies paranoia Endo Denies excessive sweating, Denies fatigue, Denies flushing, Denies polydipsia and Denies polyuria Aller/Immun Denies wheezing Physical exam (Primary Care) Vital Signs: Last Vital Signs Pulse 88 08/27/23 09:29 BP 140/82 H 08/27/23 09:29 Pulse Ox 97 08/27/23 09:29 Oxygen Delivery Method Room Air 08/27/23 09:29 BMI result Body Mass Index 29.9 Tobacco/Smoking Status: Tobacco use Status Tobacco use date assessed 08/27/23 08/27/23 09:41 Patient Tobacco Use Status Current everyday Tobacco 08/27/23 10:14 Tobacco use type Cigarette 08/27/23 10:14 e-Cigarette/Vaping Use Never Used 08/27/23 10:14 PHQ-9: PHQ-9 Score PHQ-9: Total score 0 08/27/23 10:15 Depression Screening Interpretation: Negative Thrive Assessment: Date of Thrive Assessment Date Thrive assessed 08/27/23 08/27/23 09:41 Currently or been in a relationship where the following occur: no concerns reported Const General: cooperative, comfortable, no acute distress, alert and awake; No confu guevara Orientation/consciousness: oriented to person, oriented to place, patient oriented x3 and No confusion HENMT Head: Yes normocephalic Ears: external ears normal and TM's normal bilaterally Face and sinus: No sinus tenderness Mouth: Normal oral and palatal mucosa present and tongue normal Teeth and gingiva: dentition normal and gingiva normal Throat: Yes posterior oropharynx normal, Yes tonsils normal and Yes uvula midline Eyes Conjunctivae: conjunctivae normal Sclerae: sclerae normal Pupils: Equal, round and reactive pupils present EOM: EOMs intact bilaterally Direct Ophthalmoscopy: No no photophobia Neck Neck: Yes no lymphadenopathy, No tender and Yes no JVD Thyroid: Thyroid normal Carotids: no bruits Chest Chest palpation & inspection: no tenderness Resp Effort & Inspection: normal respiratory effort, no audible wheezes, not labored and no stridor Auscultation: no crackles, no rales, no rhonchi and no wheezes Cardio Jugular venous distension: no JVD Rate: regular rate, not bradycardic and not tachycardic Rhythm: regular rhythm Bruits: no carotid bruits Peripheral pulses: Peripheral pulses 2+ throughout GI Inspection: Yes normal to inspection, No abdominal wall ecchymosis and No visible herniation Palpation (GI): Soft to palpation, nontender, no guarding, not rigid and No hepatosplenomegaly present Auscultation: normoactive bowel sounds General: Yes no CVA tenderness Back/Spine/Pelvis Back: no CVA tenderness and No back tenderness Cervical Spine: cervical ROM normal Thoracic/Lumbar Spine: thoracic and lumbar spine normal to inspection, straight leg raise negative bilaterally, No thoraco-lumbar ROM limited and No lumbar spinal tenderness Skin Lesions: no lesions Rashes: no rashes Wounds: no wounds Neuro General: oriented to person, oriented to place, patient oriented x3, CN's II-XI intact bilaterally and No confusion Cranial nerves: Yes Equal, round and reactive pupils present and Yes Normal accommodation reflex present Cognition (Neuro): normal cognition Speech: No Abnormal speech present Gait exam (Neuro): Normal gait present Motor exam (neuro): 5/5 motor strength present throughout Extrem Right upper extremity: full ROM; no cyanosis Left upper extremity: full ROM; no cyanosis Right lower extremity: no edema Left lower extremity: no edema Psych Appearance: grossly normal Mental Status: mental status grossly normal Affect: normal affect Attitude: cooperative Thought process: Normal thought process present Assessment and Plan Assessment & Plan (1) HLD (hyperlipidemia): Code(s): E78.5 - Hyperlipidemia, unspecified Qualifiers: Hyperlipidemia type: mixed hyperlipidemia Qualified Code(s): E78.2 - Mixed hyperlipidemia Plan: Patient's most recent lipid panel remains showing elevated total cholesterol and LDL. He has not been compliant with his statin therapy in agrees to start taking the medication on a daily basis. Will recheck fasting lipid panel to assure appropriate total cholesterol LDL. Goal LDL to be below 130 (2) HTN (hypertension): Code(s): I10 - Essential (primary) hypertension Qualifiers: Hypertension type: essential hypertension Qualified Code(s): I10 - Essential (primary) hypertension Plan: Patient's blood pressure acceptable today in office. Will continue his current dose of amlodipine 10 mg. Goal blood pressures to be below 140/90. Will add on hydrochlorothiazide for better blood pressure control. Noted microalbuminuria- will work on hypertension control. will recheck in 6 months (3) Tobacco dependence: Code(s): F17.200 - Nicotine dependence, unspecified, uncomplicated Plan: Patient does report cutting down his smoking. Reports smoking only in the morning with coffee. He does have nicotine patches available to him. Not interested in any medications to help him completely quit smoking. (4) Microalbuminuria: Code(s): R80.9 - Proteinuria, unspecified Plan: Noted by dasilva albuminuria likely due to hypertension. Will add on hydrochlorothiazide for better blood pressure control. Will recheck urine protein in 6 months. If elevated will consider Nephrology evaluation (5) BRETT (generalized anxiety disorder): Code(s): F41.1 - Generalized anxiety disorder Plan: Patient's BRETT-7 score positive for anxiety which has been existing condition for him. He does report most of his anxiety is related to personal issues and his employment. He has not interested in starting any medications or talking to a mental health therapist. Orders: Orders Microalbumin, Random (w Creat) Today R80.9 - Proteinuria, unspecified Comprehensive [place]. Panel Fast Today I10 - Essential (primary) hypertension Complete Blood Count no Diff Today I10 - Essential (primary) hypertension Lipid Panel Today E78.2 - Mixed hyperlipidemia Prostate Specific Antigen Scr Today I10 - Essential (primary) hypertension, Z12.5 - Encounter for screening for malignant neoplasm of prostate Medications: New hydrochlorothiazide 12.5 mg PO DAILY 90 days 90 tabs 1RF I10 - Essential (primary) hypertension tramadol 50 mg PO DAILY 10 days PRN 10 tabs 0RF pain M77.11 - Lateral epicondylitis, right elbow clotrimazole-betamethasone 1-0.05 % 1 appl topical BID 30 days 45 grams 0RF B35.6 - Tinea cruris Refilled amlodipine 10 mg PO DAILY 90 days 90 tabs 1RF I10 - Essential (primary) hypertension atorvastatin 40 mg PO DAILY 90 days 90 tabs 1RF E78.2 - Mixed hyperlipidemia Discontinued baclofen Discontinued Reason: Doctor's Order 10 mg PO BEDTIME 30 days 30 tabs 0RF M76.892 - Other specified enthesopathies of left lower limb, excluding foot Coding Level of Care Code Est Pt Prev Care 40-64y(24655) Diagnoses Mixed hyperlipidemia E78.2 Hyperlipidemia type: mixed hyperlipidemia Essential hypertension I10 Hypertension type: essential hypertension Tobacco dependence F17.200 Microalbuminuria R80.9 BRETT (generalized anxiety disorder) F41.1 Additional Codes BRETT-7 Assessment Billing - BRETT-7 Assessment Tool: BRETT-7 Assessment [id number] ([id number])
== END 2023-08-27 10:35 | disposition home or self-care (01) ==
PROVIDERS: PCP Physician Assistant; Visit Provider Physician Assistant
DX: Z00.00 Encounter for general adult medical examination without abnormal findings (principal); E78.2 Mixed hyperlipidemia; I10 Essential (primary) hypertension; F17.210 Nicotine dependence, cigarettes, uncomplicated; R80.9 Proteinuria, unspecified; F41.1 Generalized anxiety disorder
CPT/HCPCS: 99396

== ENCOUNTER 2024-02-24 07:32 | Outpatient (REF) | payer OTHER, SELFPAY ==
[2024-02-24 11:30] LABS: Hematocrit 45.9 % (42.0-52.0); Hemoglobin 15.2 g/dl (14.0-18.0); Mean Corpuscular HGB Conc 33.1 g/dl (31.0-36.0); Mean Corpuscular Hemoglobin 29.8 pg (27.0-33.0); Mean Platelet Volume 10.6 fL (9.4-12.4); Platelet Count 246 X10*3/uL (160-400); Red Cell Distribution Width 13.6 % (11.0-16.0)
[2024-02-24 12:00] LABS: Alanine Aminotransferase 19 U/L (0-40); Albumin Level 4.1 g/dL (3.5-5.0); Alkaline Phosphatase 93 U/L (39-117); Anion Gap 11 (12-20); Aspartate Amino Transferase 16 U/L (5-37); Bilirubin Total 0.4 mg/dL (0.0-1.0); Blood Urea Nitrogen 16 mg/dL (9-16); Calcium 8.8 mg/dL (8.4-10.2); Carbon Dioxide 25 mmol/L (22-29); Chloride 105 mmol/L (96-108); Cholesterol 279 mg/dL (<200); Estimated Glomerular Filt Rate > 60; Glucose Fasting 98 mg/dL (60-99); HDL Cholesterol 50 mg/dL (>40); LDL Cholesterol Calculated 204 mg/dL (<100); Potassium 3.9 mmol/L (3.3-5.1); Sodium 137 mmol/L (135-145); Triglycerides 127 mg/dL (<150)
[2024-02-24 12:04] LABS: Prostate Specific Antigen Scr 0.92 ng/mL (<0.05-4.0)
[2024-02-24 12:17] LABS: Creatinine Urine 121.52 mg/dL; Microalbum/Creatinine Ratio Ur 57.6 ug/mg cr (<30)
== END 2024-02-24 07:33 | disposition home or self-care (01) ==
LOC: HO.WFDLDS 07:32
PROVIDERS: Visit Provider Physician Assistant
DX: I10 Essential (primary) hypertension (principal); E78.2 Mixed hyperlipidemia; Z12.5 Encounter for screening for malignant neoplasm of prostate; R80.9 Proteinuria, unspecified
CPT/HCPCS: 36415; 80053; 80061; 82043; 82570; 84153; 85027

== ENCOUNTER 2024-02-26 08:50 | Outpatient (AMB) | payer OTHER, SELFPAY ==
--- NOTE | 2024-02-26 09:14 | MHC.PC.OV ---
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 Purification Required: No Accompanied by: Self / Same As Patient Allergies Tetanus Vaccines and Toxoid Allergy (Unknown, Verified 02/26/24 09:31) Unknown Medication List - Last Reconciled 02/26/24 by Rojelio Curry PA-C amlodipine 10 mg PO DAILY 90 days atorvastatin 40 mg PO DAILY 90 days cetirizine (Zyrtec) 10 mg PO DAILY 30 days clotrimazole-betamethasone 1-0.05 % 1 appl topical BID 30 days diclofenac sodium 3% 1 appl topical BID 30 days hydrochlorothiazide 12.5 mg PO DAILY 90 days ibuprofen 800 mg PO Q8H PRN naproxen 500 mg PO BID 30 days nicotine 1 patch transdermal Q24H 14 days nicotine 1 patch transdermal DAILY 14 days nicotine 1 patch transdermal DAILY 28 days tramadol 50 mg PO DAILY PRN 10 days Tobacco use date assessed: 08/27/23 Dental Screening Dental Screen Date: 08/27/23 HPI f/u HTN/ hLD- microalbuminuria HPI Details Patient is a 54 y/o M here today for a follow-up visit. Patient has a past medical history significant for tobacco abuse, hypertension, hyperlipidemia. ?? .. HLD:? ?Most recent lipid panel showing elevated total cholesterol and LDL. He reports going to a buffet and eating a lot of food the night before his lab test. He does admit to not taking his cholesterol medication on a regular basis. PLAN; implement a low-cholesterol diet and take his atorvastatin 40 mg daily. If in 4 months LDL still remains above 130 will consider increasing atorvastatin to 80 mg ?smoker:?Unfortunately still smoking 2-3 cigarettes per day with morning coffee. he does understand he needs to completely quit smoking.? Has intermittently been using the nicotine patches which has helped to reduce his smoking. .. Hypertension:? Blood pressure today in office elevated. Improved microalbuminuria noted since he has made some dietary changes. Will add on lisinopril 5 mg for better blood pressure control. He will like to continue working on lifestyle to reduce his weight and be more adherent to a low-sodium diet reduce his blood pressure. Laboratory Tests 08/19/23 08/19/23 02/24/24 07:20 07:25 07:33 RBC 5.10 Creatinine 0.80 Cholesterol 265 H 279 H LDL Cholesterol, C alc 188 H 204 H PSA Screen 0.92 Urine Microalbumin 135.0 02/24/24 07:37 RBC Creatinine Cholesterol LDL Cholesterol, C alc PSA Screen Urine Microalbumin 70.0 PFSH Surgical History History of knee surgery Family History Father Pancreatic cancer Mother Hypertension Brother ESRD (end stage renal disease) Social History Housing: House Alcohol intake: current Alcohol intake frequency: a few times a month Alcohol type: wine and hard liquor Patient Tobacco Use Status: Current everyday Tobacco user Tobacco use type: Cigarette Cigarettes Per Day: 10 (due to stress) e-Cigarette/Vaping Use: Never Used service: No Current occupational status: employed 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 Horacio Branham, Rebecca Layton, Pranav Salmeron and colleagues, with an educational leigh from [employer]. Review of Systems Const Denies headache(s) Eyes Denies loss of vision ENT Denies vertigo, Denies dizziness, Denies headache(s) and Denies sore throat Card Denies chest pain, Denies leg edema and Denies lightheadedness Resp Denies cough, Denies hemoptysis and Denies wheezing GI Denies abdominal pain, Denies melena, Denies constipation, Denies diarrhea and Denies vomiting Denies dysuria, Denies urinary frequency and Denies urinary urgency Musc Denies arthralgias, Denies joint swelling, Denies numbness and Denies tingling Neuro Denies Abnormal speech present, Denies behavioral changes, Denies vertigo, Denies dizziness, Denies headache(s), Denies loss of vision, Denies memory loss, Denies numbness and Denies tingling Psych Denies anxiety, Denies behavioral changes, Denies depression, Denies memory loss and Denies panic attacks Mateusz/Lymph Denies easy bleeding and Denies easy bruising Aller/Immun Denies wheezing Physical exam (Primary Care) Vital Signs: Last Vital Signs Pulse 66 02/26/24 09:15 BP 154/100 H 02/26/24 09:15 Pulse Ox 98 02/26/24 09:15 Oxygen Delivery Method Room Air 02/26/24 09:15 BMI result Body Mass Index 28.3 Tobacco/Smoking Status: Tobacco use Status Tobacco use date assessed 08/27/23 02/26/24 09:16 Patient Tobacco Use Status Current everyday Tobacco 02/26/24 09:16 Tobacco use type Cigarette 02/26/24 09:16 e-Cigarette/Vaping Use Never Used 02/26/24 09:16 Are you ready to quit: No Tobacco cessation counseling provided: Yes Items discussed: Nicotine replacement Relapse Prevention: discussed the importance of a supportive environment, discussed negative mood or depression after quitting, weight gain after smoking is common and discussed dietary, exercise and/or lifestyle changes Number of minutes spent counselin CPT code: 42759 - 4-10 Minutes Thrive Assessment: Date of Thrive Assessment Date Thrive assessed 08/27/23 02/26/24 09:16 Const General: healthy appearing, no acute distress, alert and awake Nutritional Appearance: well nourished Orientation/consciousness: oriented to person, oriented to place and oriented to time HENMT Ears: TM's normal bilaterally General nose exam: Normal nasal mucous membranes and turbinates present Eyes Conjunctivae: conjunctivae normal Sclerae: sclerae normal Pupils: Equal, round and reactive pupils present Neck Neck: Yes no lymphadenopathy and Yes no JVD Thyroid: Thyroid normal Carotids: no bruits Resp Effort & Inspection: normal respiratory effort and not tachypneic Auscultation: no crackles, no rales, no rhonchi and no wheezes Cardio Rate: regular rate Rhythm: regular rhythm Heart sounds: no murmurs and normal S1 and S2 GI Palpation (GI): Soft to palpation, nontender, no hepatomegaly and no splenomegaly Auscultation: normal bowel sounds Skin General skin exam: no rashes or lesions noted and dry skin Neuro General: oriented to person, oriented to place and oriented to time Cranial nerves: Yes Equal, round and reactive pupils present Speech: No Abnormal speech present Gait exam (Neuro): Normal gait present Motor exam (neuro): no tremor noted Extrem Right upper extremity: full ROM Left upper extremity: full ROM Right lower extremity: full ROM; no edema Left lower extremity: full ROM; no edema Psych Mental Status: mental status grossly normal Speech and movement: Normal speech and movement present Affect: normal affect Attitude: cooperative Thought process: Normal thought process present Assessment and Plan Assessment & Plan (1) HLD (hyperlipidemia): Code(s): E78.5 - Hyperlipidemia, unspecified Qualifiers: Hyperlipidemia type: mixed hyperlipidemia Qualified Code(s): E78.2 - Mixed hyperlipidemia Plan: Patient's most recent lipid panel remains showing elevated total cholesterol and LDL. He has not been compliant with his statin therapy in agrees to start taking the medication on a daily basis. Will recheck fasting lipid panel to assure appropriate total cholesterol LDL. Will consider increasing his atorvastatin to 80 mg. Goal LDL to be below 130 (2) HTN (hypertension): Code(s): I10 - Essential (primary) hypertension Qualifiers: Hypertension type: essential hypertension Qualified Code(s): I10 - Essential (primary) hypertension Plan: Patient's blood pressure elevated today in office. Will continue his current dose of amlodipine 10 mg. Goal blood pressures to be below 140/90. Will add on lisinopril 5 mg for better blood pressure control Noted microalbuminuria- has improved though still elevated at 70. will recheck in 6 months (3) Tobacco dependence: Code(s): F17.200 - Nicotine dependence, unspecified, uncomplicated Plan: Patient does report cutting down his smoking. Reports smoking only in the morning with coffee. He does have nicotine patches available to him. Not interested in any medications to help him completely quit smoking. (4) Microalbuminuria: Code(s): R80.9 - Proteinuria, unspecified Plan: Noted by dasilva albuminuria likely due to hypertension. Will add on lisinopril for better blood pressure control. If elevated will consider Nephrology evaluation Orders: Orders Lipid Panel 4 Months E78.2 - Mixed hyperlipidemia Comprehensive [place]. Panel Fast 4 Months I10 - Essential (primary) hypertension Medications: New lisinopril 5 mg PO DAILY 30 tabs 1RF 30 days I10 - Essential (primary) hypertension Refilled amlodipine 10 mg PO DAILY 90 tabs 1RF 90 days I10 - Essential (primary) hypertension atorvastatin 40 mg PO DAILY 90 tabs 1RF 90 days E78.2 - Mixed hyperlipidemia hydrochlorothiazide 12.5 mg PO DAILY 90 tabs 1RF 90 days I10 - Essential (primary) hypertension Patient Instructions: Goal: Blood pressure to be below 140/90 Barriers: Adherence to physical activity and healthy eating habits Coding Level of Care Code Est Pt Level 4 (02477) Diagnoses Mixed hyperlipidemia E78.2 Hyperlipidemia type: mixed hyperlipidemia Essential hypertension I10 Hypertension type: essential hypertension Tobacco dependence F17.200 Microalbuminuria R80.9 Additional Codes Vital Signs *Quality* - CPT code: 06042 - 4-10 Minutes ([id number])
[2024-02-26 09:15] VITALS: BP 154/100; PULSE 66; O2SAT 98; BMI 28.3
== END 2024-02-26 09:50 | disposition home or self-care (01) ==
PROVIDERS: PCP Physician Assistant; Visit Provider Physician Assistant
DX: E78.2 Mixed hyperlipidemia (principal); I10 Essential (primary) hypertension; F17.200 Nicotine dependence, unspecified, uncomplicated; R80.9 Proteinuria, unspecified
CPT/HCPCS: 99214

== ENCOUNTER 2024-03-23 11:13 | Emergency (ER) | payer OTHER, SELFPAY ==
--- NOTE | ~2024-03-23 | XR_ITS ---
EXAMINATION: XR SHOULDER, RIGHT CLINICAL INFORMATION: Shoulder pain COMPARISON: None available. TECHNIQUE: Three views of the right shoulder. FINDINGS: No visible acute fracture or dislocation.. Glenohumeral and acromioclavicular alignment is anatomic with normal joint space. No abnormal soft tissue calcifications. XR/XR shoulder RT min 2V IMPRESSION: No radiographic evidence of acute fracture. Electronically signed by: Nathan Mora MD 03/23/2024 03:51 PM EDT
--- NOTE | ~2024-03-23 | XR_ITS ---
EXAMINATION: XR ELBOW, RIGHT CLINICAL INFORMATION: Atraumatic elbow pain. COMPARISON: None available. TECHNIQUE: AP, lateral, and oblique views of the right elbow. FINDINGS: The bones and soft tissues are normal. No fracture or joint effusion. Alignment is anatomic. Joint spaces are maintained. Enthesopathy at the olecranon. XR/XR elbow RT min 3V IMPRESSION: Mild degenerative disease of the right elbow. Electronically signed by: Demi Seaman MD 03/23/2024 12:31 PM EDT
--- NOTE | ~2024-03-23 | US_ITS ---
EXAMINATION: US TRIPLEX UPPER EXTREMITY, RIGHT CLINICAL INFORMATION: Arm pain COMPARISON: None available. TECHNIQUE: Color-flow triplex imaging with spectral analysis and compression Doppler was performed on the right upper extremity. FINDINGS: The right internal jugular, subclavian, and axillary veins are patent and free of thrombus. The imaged segment of the right brachiocephalic vein is patent. Spectral doppler waveforms are normal. The brachial, basilic, cephalic, radial, and ulnar veins are patent and compressible. US/US venous duplex UE RT IMPRESSION: No evidence of deep venous thrombosis involving the right upper extremity. Electronically signed by: Demi Seaman MD 03/23/2024 12:24 PM EDT
--- NOTE | 2024-03-23 11:23 | ED.UPPEXIN ---
HPI - Extremity Injury (Upper) General Chief Complaint: Upper Respiratory Symptoms Stated Complaint: R arm pain Time Seen by Provider: 03/23/24 13:23 Related Data Previous Rx's ?Medication ?Instructions ?Recorded diclofenac sodium 3 % topical gel 1 appl topical BID 30 days #100 09/21/21 grams naproxen 500 mg tablet 500 mg PO BID 30 days #60 tabs 12/25/21 nicotine 7 mg/24 hr daily 1 patch transdermal Q24H 14 days 12/25/21 transdermal patch #14 ea nicotine 14 mg/24 hr daily 1 patch transdermal DAILY 28 days 06/26/22 transdermal patch #28 ea nicotine 21 mg/24 hr daily 1 patch transdermal DAILY 14 days 06/26/22 transdermal patch #14 ea cetirizine 10 mg tablet (Zyrtec) 10 mg PO DAILY 30 days #30 tabs 09/18/22 ibuprofen 800 mg tablet 800 mg PO Q8H PRN pain #30 tabs 08/03/23 clotrimazole-betamethasone 1 1 appl topical BID 30 days #45 08/27/23 %-0.05 % topical cream grams tramadol 50 mg tablet 50 mg PO DAILY PRN pain 10 days 08/27/23 #10 tabs amlodipine 10 mg tablet 10 mg PO DAILY 90 days #90 tabs 02/26/24 atorvastatin 40 mg tablet 40 mg PO DAILY 90 days #90 tabs 02/26/24 hydrochlorothiazide 12.5 mg tablet 12.5 mg PO DAILY 90 days #90 tabs 02/26/24 lisinopril 5 mg tablet 5 mg PO DAILY 30 days #30 tabs 02/26/24 acetaminophen 325 mg capsule 325 mg PO Q4H PRN pain #30 caps 03/23/24 (Tylenol) ketorolac 10 mg tablet 10 mg PO TID PRN pain 5 days #15 03/23/24 tabs prednisone 20 mg tablet 20 mg PO DAILY 5 days #5 tabs 03/23/24 Allergies Allergy/AdvReac Type Severity Reaction Status Date / Time Tetanus Vaccines and Toxoid Allergy Unknown Unknown Verified 03/23/24 11:24 [facility] Past Medical History Surgical History History of knee surgery Family History Family History Father Pancreatic cancer Mother Hypertension Brother ESRD (end stage renal disease) Social History Social History Housing: House Alcohol intake: current Alcohol intake frequency: a few times a month Alcohol type: wine and hard liquor Patient Tobacco Use Status: Current everyday Tobacco user Tobacco use type: Cigarette Cigarettes Per Day: 10 (due to stress) e-Cigarette/Vaping Use: Never Used Advance Directives: No Advance Directives Information Provided: No Do you have a plan to hurt others: No Plan service: No Current occupational status: employed 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 Full HPI, ROS, assessment and treatment plan per primary provider in the Main ED. 54 yo male hx of HTN, HDL, MDD, BRETT, right lateral epicondylitis here for eval of right elbow/ upper arm pain x3 days. pain present on waking in the morning. no injury/ trauma. hx of steroid injections. taking tylenol/ motrin at home w/o relief. + FROM intact to right shoulder. limited ROM to right elbow. 2+radial and ulnar pulse intact Plan: xr, us Reevaluation(s) Reevaluation #1: Patient feeling alot better after lidoderm and toradol. Venous duplex unremarkable no DVT in the right upper extremity. 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 Time: 14:52 Medications Administered Discontinued Medications Generic Name Dose Route Start Last Admin Trade Name Freq PRN Reason Stop Dose Admin Ketorolac Tromethamine 30 mg 03/23/24 14:15 03/23/24 14:36 Ketorolac Tromethamine 30 Mg/Ml Vial IM 03/23/24 14:16 30 mg ONCE ONE Administration Lidocaine 1 patch 03/23/24 14:15 03/23/24 14:36 Lidocaine 4 % Patch Adh..Patch TRANSDERMA 03/23/24 14:16 1 patch ONCE ONE Administration Protocol Discharge Plan Discharge Clinical Impression: Acute pain of right shoulder Patient Disposition: Home, Self-Care Instructions: Arm Pain (ED) Additional Instructions: Take your medications as prescribed. If you were prescribed antibiotics today, it is important that you take your medication to their entirety, do not skip any doses, do not finish them early. Follow-up with your primary care provider this week. Return to the emergency department with new or worsening symptoms. Such as fevers, chills, chest pain, shortness of breath, nausea, vomiting, dizziness, headache, vision changes, lethargy In case of emergency call 911 Toradol has been sent to your pharmacy, you tolerated this well in the department. Please take this as prescribed do not take this with ibuprofen, or other NSAIDs, do not mix this with alcohol. Side effects of this medication including increased risk for bleeding and possible kidney injury. Follow-up with the orthopedic team if needed XR/XR shoulder RT min 2V IMPRESSION: No radiographic evidence of acute fracture Prescriptions: New prednisone 20 mg tablet 20 mg PO DAILY 5 Days Qty: 5 0RF ketorolac 10 mg tablet 10 mg PO TID PRN (Reason: pain) 5 Days Qty: 15 0RF acetaminophen [Tylenol] 325 mg capsule 325 mg PO Q4H PRN (Reason: pain) Qty: 30 0RF No Action ibuprofen 800 mg tablet 800 mg PO Q8H PRN (Reason: pain) Qty: 30 0RF diclofenac sodium 3 % gel 1 appl topical BID 30 Days Qty: 100 0RF cetirizine [Zyrtec] 10 mg tablet 10 mg PO DAILY 30 Days Qty: 30 2RF nicotine 7 mg/24 hr patch 24 hour 1 patch transdermal Q24H 14 Days Qty: 14 0RF naproxen 500 mg tablet 500 mg PO BID 30 Days Qty: 60 3RF nicotine 14 mg/24 hr patch 24 hour 1 patch transdermal DAILY 28 Days Qty: 28 0RF nicotine 21 mg/24 hr patch 24 hour 1 patch transdermal DAILY 14 Days Qty: 14 1RF tramadol 50 mg tablet 50 mg PO DAILY PRN (Reason: pain) 10 Days Qty: 10 0RF clotrimazole-betamethasone 1-0.05 % cream 1 appl topical BID 30 Days Qty: 45 0RF amlodipine 10 mg tablet 10 mg PO DAILY 90 Days Qty: 90 1RF hydrochlorothiazide 12.5 mg tablet 12.5 mg PO DAILY 90 Days Qty: 90 1RF atorvastatin 40 mg tablet 40 mg PO DAILY 90 Days Qty: 90 1RF lisinopril 5 mg tablet 5 mg PO DAILY 30 Days Qty: 30 1RF Referrals: [facility] Orthopedic Surgeons [Provider Group] - 2 days ED Physician,Generic [Physician] - 2 days Stand Alone Forms: Work/School Release Print Language: Maldivian
[2024-03-23 11:24] VITALS: BP 173/112; PULSE 68; RESP 18; TEMP 37.1; O2SAT 97; BMI 28.2
--- NOTE | 2024-03-23 14:15 | ECG_ITS ---
Test Reason : ARM PAIN Blood Pressure : / mmHG Vent. Rate : 049 BPM Atrial Rate : 049 BPM P-R Int : 150 ms QRS Dur : 094 ms QT Int : 412 ms P-R-T Axes : 044 031 032 degrees QTc Int : 372 ms Sinus bradycardia with sinus arrhythmia Otherwise normal ECG No previous ECGs available Referred By: Justino Rice Electronically Signed By:DEWAYNE STORY
[2024-03-23] MEDS: Ketorolac Tromethamine 30 MG/ML VIAL IM (14:36)
[2024-03-23] MEDS: Lidocaine 4 % Patch ADH..PATCH 1 PATCH TRANSDERMA (14:36)
[2024-03-23 14:41] VITALS: BP 168/118; PULSE 68; RESP 16; TEMP 36.6; O2SAT 98
[2024-03-23 16:29] VITALS: BP 158/115; PULSE 55; RESP 18; TEMP 36.7; O2SAT 98
== END 2024-03-23 16:30 | disposition home or self-care (01) ==
PROVIDERS: Emergency Provider Emergency Medicine; PCP Physician Assistant
DX: M25.511 Pain in right shoulder (principal); M25.521 Pain in right elbow; F32.9 Major depressive disorder, single episode, unspecified; I10 Essential (primary) hypertension
CPT/HCPCS: 73030; 73080; 93005; 93971; 96372; 99284; J1885

== ENCOUNTER 2024-04-15 08:14 | Outpatient (AMB) | payer OTHER, SELFPAY ==
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
== END 2024-04-15 08:36 | disposition home or self-care (01) ==
PROVIDERS: PCP Physician Assistant; Visit Provider Orthopaedic Surgery
DX: M25.511 Pain in right shoulder (principal); M25.811 Other specified joint disorders, right shoulder
CPT/HCPCS: 20610; 99203

== ENCOUNTER → 2024-04-15 08:14 | Outpatient (BNVA) | payer OTHER, SELFPAY | PROVIDERS: PCP Physician Assistant; Visit Provider Orthopaedic Surgery | DX: M25.511 Pain in right shoulder (principal); M25.811 Other specified joint disorders, right shoulder | CPT/HCPCS: 20610; 99202; J1010 ==

== ENCOUNTER 2024-06-09 07:00 | Outpatient (RCR) | payer OTHER, SELFPAY | END 2024-08-18 08:25 | disposition home or self-care (01) | LOC: HO.PTWFD 07:00 | PROVIDERS: PCP Physician Assistant; Visit Provider Orthopaedic Surgery | DX: M25.811 Other specified joint disorders, right shoulder (principal) | CPT/HCPCS: 97012; 97110; 97140; 97162 ==

== ENCOUNTER 2024-06-29 08:45 | Outpatient (AMB) | payer OTHER, SELFPAY ==
[2024-06-29 08:52] VITALS: BP 156/102; PULSE 89; O2SAT 99; BMI 28.6
--- NOTE | 2024-06-29 08:52 | A.OFFPC_ITS ---
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: No Accompanied by: Self / Same As Patient Allergies Tetanus Vaccines and Toxoid Allergy (Unknown, Verified 06/29/24 09:04) Unknown Medication List - Last Reconciled 06/29/24 by Rojelio Curry PA-C amlodipine 10 mg PO DAILY 90 days atorvastatin 40 mg PO DAILY 90 days clotrimazole-betamethasone 1-0.05 % 1 appl topical BID 30 days hydrochlorothiazide 12.5 mg PO DAILY 90 days ibuprofen 800 mg PO Q8H PRN lisinopril 5 mg PO DAILY 30 days nicotine 1 patch transdermal Q24H 14 days nicotine 1 patch transdermal DAILY 14 days nicotine 1 patch transdermal DAILY 28 days Tobacco use date assessed: 08/27/23 Dental Screening Dental Screen Date: 06/29/24 Did you have a dental visit in the last 12 months?: No Did you have a dental problem in the last 6 months where you did not have access to dental care?: No Was dental information given to patient?: Patient has dentist HPI f/u HLD/ HTN HPI Details Patient is a 54 y/o M here today for a follow-up visit. Patient has a past medical history significant for tobacco abuse, hypertension, hyperlipidemia. UNFORTUNATELY HAS NOT FASTING LABS BEFORE TODAY'S APPOINTMENT. ?? .. HLD:? ?Most recent lipid panel showing elevated total cholesterol and LDL. He reports going to a buffet and eating a lot of food the night before his lab test. He does admit to not taking his cholesterol medication on a regular basis. PLAN; implement a low-cholesterol diet and take his atorvastatin 40 mg daily. If in 4 months LDL still remains above 130 will consider increasing atorvastatin to 80 mg ?smoker:?Unfortunately still smoking 2-3 cigarettes per day with morning coffee. he does understand he needs to completely quit smoking.? Has intermittently been using the nicotine patches which has helped to reduce his smoking. .. Hypertension:? Blood pressure today in office elevated. He reports taking amlodipine, lisinopril and hydrochlorothiazide together for few weeks though felt dizzy. Has stopped taking lisinopril. PLAN : Will switch to using lisinopril in the afternoon and continue amlodipine and hydrochlorothiazide in the morning.. 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 Horacio Branham, Rebecca Layton, Pranav Salmeron and colleagues, with an educational leigh from [employer]. Review of Systems Const Denies headache(s) Eyes Denies loss of vision ENT Denies vertigo, Denies dizziness, Denies headache(s) and Denies sore throat Card Denies chest pain, Denies leg edema and Denies lightheadedness Resp Denies cough, Denies hemoptysis and Denies wheezing GI Denies abdominal pain, Denies melena, Denies constipation, Denies diarrhea and Denies vomiting Denies dysuria, Denies urinary frequency and Denies urinary urgency Musc Denies arthralgias, Denies joint swelling, Denies numbness and Denies tingling Neuro Denies Abnormal speech present, Denies behavioral changes, Denies vertigo, Denies dizziness, Denies headache(s), Denies loss of vision, Denies memory loss, Denies numbness and Denies tingling Psych Denies anxiety, Denies behavioral changes, Denies depression, Denies memory loss and Denies panic attacks Mateusz/Lymph Denies easy bleeding and Denies easy bruising Aller/Immun Denies wheezing Physical exam (Primary Care) Vital Signs: Last Vital Signs Pulse 89 06/29/24 08:52 BP 156/102 H 06/29/24 08:52 Pulse Ox 99 06/29/24 08:52 Oxygen Delivery Method Room Air 06/29/24 08:52 BMI result Body Mass Index 28.6 Tobacco/Smoking Status: Tobacco use Status Tobacco use date assessed 08/27/23 06/29/24 09:01 Patient Tobacco Use Status Current everyday Tobacco 06/29/24 09:01 Tobacco use type Cigarette 06/29/24 09:01 e-Cigarette/Vaping Use Never Used 06/29/24 09:01 Are you ready to quit: Yes Tobacco cessation counseling provided: Yes Items discussed: Nicotine replacement Relapse Prevention: discussed the importance of a supportive environment, discussed negative mood or depression after quitting, weight gain after smoking is common and discussed dietary, exercise and/or lifestyle changes Number of minutes spent counselin CPT code: 69518 - 4-10 Minutes Thrive Assessment: Date of Thrive Assessment Date Thrive assessed 08/27/23 06/29/24 09:01 Const General: healthy appearing, no acute distress, alert and awake Nutritional Appearance: well nourished Orientation/consciousness: oriented to person, oriented to place and oriented to time HENMT Ears: TM's normal bilaterally General nose exam: Normal nasal mucous membranes and turbinates present Eyes Conjunctivae: conjunctivae normal Sclerae: sclerae normal Pupils: Equal, round and reactive pupils present Neck Neck: Yes no lymphadenopathy and Yes no JVD Thyroid: Thyroid normal Carotids: no bruits Resp Effort & Inspection: normal respiratory effort and not tachypneic Auscultation: no crackles, no rales, no rhonchi and no wheezes Cardio Rate: regular rate Rhythm: regular rhythm Heart sounds: no murmurs and normal S1 and S2 GI Palpation (GI): Soft to palpation, nontender, no hepatomegaly and no splenomegaly Auscultation: normal bowel sounds Skin General skin exam: no rashes or lesions noted and dry skin Neuro General: oriented to person, oriented to place and oriented to time Cranial nerves: Yes Equal, round and reactive pupils present Speech: No Abnormal speech present Gait exam (Neuro): Normal gait present Motor exam (neuro): no tremor noted Extrem Right upper extremity: full ROM Left upper extremity: full ROM Right lower extremity: full ROM; no edema Left lower extremity: full ROM; no edema Psych Mental Status: mental status grossly normal Speech and movement: Normal speech and movement present Affect: normal affect Attitude: cooperative Thought process: Normal thought process present Office Procedures Flu Questionnaire Does the patient have a severe egg allergy?: No Immunizations Fluarix Triv [id number] (PF) 45 mcg (15 mcg x 3)/0.5 mL IM syringe Performing Provider: Rojelio Curry PA-C [facility] [place] [facility] Documented (not given) by: TONI Morton on 06/29/24 09:03 Reason Not Given: Patient Refused Coding Level of Care Code Est Pt Level 4 (95578) Diagnoses Essential hypertension I10 Hypertension type: essential hypertension Mixed hyperlipidemia E78.2 Hyperlipidemia type: mixed hyperlipidemia Tobacco dependence F17.200 Additional Codes Vital Signs *Quality* - CPT code: 51241 - 4-10 Minutes ([id number]) Assessment & Plan Assessment & Plan (1) HTN (hypertension): Code(s): I10 - Essential (primary) hypertension Category: Medical Qualifiers: Hypertension type: essential hypertension Qualified Code(s): I10 - Essential (primary) hypertension Plan: Patient's blood pressure elevated today in office. Will switch to using lisinopril in the afternoon and continue his amlodipine/ hydrochlorothiazide in the morning. Goal blood pressures to be below 140/90 (2) HLD (hyperlipidemia): Code(s): E78.5 - Hyperlipidemia, unspecified Category: Medical Qualifiers: Hyperlipidemia type: mixed hyperlipidemia Qualified Code(s): E78.2 - Mixed hyperlipidemia Plan: Patient's most recent lipid panel showing elevated total cholesterol and LDL. He continues on atorvastatin 40. He will get fasting labs done in if LDL still significantly elevated will consider increasing atorvastatin to 80 mg. (3) Tobacco dependence: Code(s): F17.200 - Nicotine dependence, unspecified, uncomplicated Category: Medical Plan: He does admit to smoking 1-5 cigarettes per day depending on his stress level. He does understand he needs to completely quit smoking. He does have nicotine patches available to him Orders: Orders Influenza [id number] Immunization 06/29/24 Z23 - Encounter for immunization Medications: New baclofen 10 mg PO BID PRN 28 tabs 0RF muscle spasm 14 days M25.811 - Other specified joint disorders, right shoulder
== END 2024-06-29 09:26 | disposition home or self-care (01) ==
PROVIDERS: PCP Physician Assistant; Visit Provider Physician Assistant
DX: I10 Essential (primary) hypertension (principal); E78.2 Mixed hyperlipidemia; F17.200 Nicotine dependence, unspecified, uncomplicated

== ENCOUNTER → 2024-06-29 08:45 | Outpatient (BNVA) | payer OTHER, SELFPAY | PROVIDERS: PCP Physician Assistant; Visit Provider Physician Assistant | DX: I10 Essential (primary) hypertension (principal); E78.2 Mixed hyperlipidemia; F17.200 Nicotine dependence, unspecified, uncomplicated; Z71.6 Tobacco abuse counseling | CPT/HCPCS: 90471; 99212 ==

== ENCOUNTER 2024-07-07 07:50 | Outpatient (AMB) | payer OTHER, SELFPAY ==
[2024-07-07 07:53] VITALS: BMI 28.6
--- NOTE | 2024-07-07 07:53 | MHC.OFFVIS ---
Vital Signs 07/07/24 07:53 Height 5 ft 11 in Weight 205 lb BMI 28.6 Intake Visit Reasons: Neck pain and right shoulder pain Intake Note: Tommy is a 54 year old male who presents with complaints of intermittent neck pain as well as right shoulder pain. He describes his pains as achy in nature. He got fairly good relief from the right shoulder cortisone injection that was given at his last visit. He continues to get routine massage therapy. He has tried Tylenol and anti-inflammatory medicines which gave him mild relief. Allergies Tetanus Vaccines and Toxoid Allergy (Unknown, Verified 07/07/24 08:00) Unknown Medication List - Last Reconciled 07/07/24 by Sushil Prado MD amlodipine 10 mg PO DAILY 90 days atorvastatin 40 mg PO DAILY 90 days baclofen 10 mg PO BID PRN 14 days clotrimazole-betamethasone 1-0.05 % 1 appl topical BID 30 days hydrochlorothiazide 12.5 mg PO DAILY 90 days ibuprofen 800 mg PO Q8H PRN lisinopril 5 mg PO DAILY 90 days PFSH Surgical History History of knee surgery Family History Father Pancreatic cancer Mother Hypertension Brother ESRD (end stage renal disease) Social History Housing: House Alcohol intake: current Alcohol intake frequency: a few times a month Alcohol type: wine and hard liquor Patient Tobacco Use Status: Current everyday Tobacco user Tobacco use type: Cigarette Cigarettes Per Day: 10 (due to stress) e-Cigarette/Vaping Use: Never Used Second Hand Smoke Exposure: No service: No Current occupational status: employed 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 Current occupational exposures/hazards: No Cognitive needs: No Hearing needs: No Vision needs: No Physical Exam Vital Signs: BMI result Body Mass Index 28.6 Const Other: Well-nourished well-developed very friendly male awake alert and oriented x3 in no acute distress Extrem Other: Bilateral upper extremity examination shows good capillary refill, no skin lesions noted, normal sensation light touch Right shoulder examination shows full range of motion when compared to his left shoulder, 4+ out of 5 strength with supraspinatus testing, positive impingement signs, tenderness over his acromioclavicular joint, no instability Assessment & Plan Assessment & Plan (1) Impingement of right shoulder: Code(s): M25.811 - Other specified joint disorders, right shoulder Category: Medical Plan Mr. Atkinson presents with right shoulder pain due to impingement syndrome. I had a lengthy discussion with the patient regarding the treatment options. He wishes to hold off on surgery for as long as possible. I agree with this plan. I did give him a prescription for a Medrol Dosepak to help with inflammation. He will contact me prior to his follow-up appointment in 2 months should any questions or concerns arise. Feel free to call me at any time should questions regarding his orthopedic management arise. I spent 20 minutes in reviewing the patient's records and imaging studies, seeing the patient and documenting in the medical record. Medications: New methylprednisolone (Medrol (Ehsan)) PO PER PKG DIR 21 ea 0RF Coding Level of Care Code Est Pt Level 3 (97381) Complex EM visit Add On G2211 Diagnoses Impingement of right shoulder M25.811
== END 2024-07-07 08:10 | disposition home or self-care (01) ==
PROVIDERS: PCP Physician Assistant; Visit Provider Orthopaedic Surgery
DX: M25.811 Other specified joint disorders, right shoulder (principal)
CPT/HCPCS: 99213; G2211

== ENCOUNTER → 2024-07-07 07:50 | Outpatient (BNVA) | payer OTHER, SELFPAY | PROVIDERS: PCP Physician Assistant; Visit Provider Orthopaedic Surgery | DX: M25.811 Other specified joint disorders, right shoulder (principal) | CPT/HCPCS: 99212 ==

== ENCOUNTER 2024-09-15 08:26 | Outpatient (AMB) | payer OTHER, SELFPAY ==
--- NOTE | 2024-09-15 08:32 | A.OFFVIS_ITS ---
Vital Signs 09/15/24 08:35 Height 5 ft 11 in Weight 205 lb BMI 28.6 Intake Visit Reasons: OV-F/U - right shoulder pain Intake Note: Tommy is a 54 year old male who presents with complaints of intermittent discomfort along the lateral aspect of his right shoulder. He denies any weakness. He states that he got fairly good relief from the Medrol Dosepak. Plans on returning to exercising in the near future. Allergies Tetanus Vaccines and Toxoid Allergy (Unknown, Verified 09/15/24 08:35) Unknown Medication List - Last Reconciled 09/15/24 by Sushil Prado MD amlodipine 10 mg PO DAILY 90 days atorvastatin 40 mg PO DAILY 90 days baclofen 10 mg PO BID PRN 14 days clotrimazole-betamethasone 1-0.05 % 1 appl topical BID 30 days hydrochlorothiazide 12.5 mg PO DAILY 90 days ibuprofen 800 mg PO Q8H PRN lisinopril 5 mg PO DAILY 90 days methylprednisolone (Medrol (Ehsan)) PO PER PKG DIR PFSH Surgical History History of knee surgery Family History Father Pancreatic cancer Mother Hypertension Brother ESRD (end stage renal disease) Social History Housing: House Alcohol intake: current Alcohol intake frequency: a few times a month Alcohol type: wine and hard liquor Patient Tobacco Use Status: Current everyday Tobacco user Tobacco use type: Cigarette Cigarettes Per Day: 10 (due to stress) e-Cigarette/Vaping Use: Never Used Second Hand Smoke Exposure: No service: No Current occupational status: employed 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 Current occupational exposures/hazards: No Cognitive needs: No Hearing needs: No Vision needs: No Physical Exam Vital Signs: BMI result Body Mass Index 28.6 Const Other: Well-nourished well-developed very friendly male awake alert and oriented x3 in no acute distress Extrem Other: Bilateral upper extremity examination shows good capillary refill, no skin les ions noted, normal sensation light touch Right shoulder examination shows full range of motion when compared to his left shoulder, 5/5 strength with supraspinatus testing, positive impingement signs, no instability Assessment & Plan Assessment & Plan (1) Impingement of right shoulder: Code(s): M25.811 - Other specified joint disorders, right shoulder Category: Medical Plan Mr. Atkinson presents with intermittent discomfort in his right shoulder due to impingement syndrome. I had a lengthy discussion with the patient regarding the treatment options. At this point the patient's symptoms are tolerable to him. He will resume his exercise program. The do's and don'ts of lifting were discussed at length with the patient. Will follow up with me on an as-needed basis should his symptoms worsen in any way. Feel free to call me at any time should questions regarding his orthopedic management arise. I spent 21 minutes in reviewing the patient's records and imaging studies, seeing the patient and documenting in the medical record. Coding Level of Care Code Est Pt Level 3 (22491) Complex EM visit Add On G2211 Diagnoses Impingement of right shoulder M25.811
[2024-09-15 08:35] VITALS: BMI 28.6
== END 2024-09-15 08:56 | disposition home or self-care (01) ==
PROVIDERS: PCP Physician Assistant; Visit Provider Orthopaedic Surgery
DX: M25.811 Other specified joint disorders, right shoulder (principal)
CPT/HCPCS: 99213; G2211

== ENCOUNTER → 2024-09-15 08:26 | Outpatient (BNVA) | payer OTHER, SELFPAY | PROVIDERS: PCP Physician Assistant; Visit Provider Orthopaedic Surgery | DX: M25.811 Other specified joint disorders, right shoulder (principal); M25.511 Pain in right shoulder | CPT/HCPCS: 99212 ==

== ENCOUNTER 2024-10-28 07:32 | Outpatient (REF) | payer OTHER, SELFPAY ==
[2024-10-28 12:09] LABS: Alanine Aminotransferase 29 U/L (0-40); Albumin Level 4.3 g/dL (3.5-5.0); Alkaline Phosphatase 107 U/L (39-117); Anion Gap 8 (12-20); Aspartate Amino Transferase 30 U/L (5-37); Bilirubin Total 0.2 mg/dL (0.0-1.0); Blood Urea Nitrogen 19 mg/dL (9-16); Calcium 9.4 mg/dL (8.4-10.2); Carbon Dioxide 29 mmol/L (22-29); Chloride 107 mmol/L (96-108); Cholesterol 242 mg/dL (<200); Estimated Glomerular Filt Rate > 60; Glucose Fasting 97 mg/dL (60-99); HDL Cholesterol 48 mg/dL (>40); LDL Cholesterol Calculated 164 mg/dL (<100); Potassium 4.3 mmol/L (3.3-5.1); Sodium 140 mmol/L (135-145); Total Protein 7.3 g/dL (6.5-8.0); Triglycerides 151 mg/dL (<150)
== END 2024-10-28 07:33 | disposition home or self-care (01) ==
LOC: HO.WFDLDS 07:32
PROVIDERS: Visit Provider Physician Assistant
DX: E78.2 Mixed hyperlipidemia (principal); I10 Essential (primary) hypertension
CPT/HCPCS: 36415; 80053; 80061

== ENCOUNTER 2024-10-29 10:07 | Outpatient (AMB) | payer OTHER, SELFPAY ==
--- NOTE | 2024-10-29 10:14 | MHC.PC.OV ---
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 Required: No Accompanied by: Self / Same As Patient Allergies Tetanus Vaccines and Toxoid Allergy (Unknown, Verified 10/29/24 10:37) Unknown hydrochlorothiazide Adverse Reaction (Intermediate, Verified 10/29/24 10:41) Dizziness Medication List - Last Reconciled 10/29/24 by Rojelio Curry PA-C amlodipine 10 mg PO DAILY 90 days atorvastatin 40 mg PO DAILY 90 days baclofen 10 mg PO BID PRN 14 days clotrimazole-betamethasone 1-0.05 % 1 appl topical BID 30 days ibuprofen 800 mg PO Q8H PRN methylprednisolone (Medrol (Ehsan)) PO PER PKG DIR Tobacco use date assessed: 10/29/24 Dental Screening Dental Screen Date: 10/29/24 Did you have a dental visit in the last 12 months?: No Did you have a dental problem in the last 6 months where you did not have access to dental care?: Yes Was dental information given to patient?: Yes HPI pe HPI Details Patient is a 54 y/o M here today for a routine annual physical Patient has a past medical history significant for tobacco abuse, hypertension, hyperlipidemia. Concern--> reports bilateral lower extremity varicosities that often cramp on him. He does ride a bike during the spring and summer months. He has developed skin rash overlying his varicosities as seen in picture section. ?? .. HLD:? ?Most recent lipid panel showing improved total cholesterol and LDL. Continues on moderate statin dose in his not interested in increasing at this time. PLAN; implement a low-cholesterol diet and take his atorvastatin 40 mg daily. ?smoker:?Unfortunately still smoking 2-3 cigarettes per day with morning coffee. he does understand he needs to completely quit smoking.? Has intermittently been using the nicotine patches which has helped to reduce his smoking. .. Hypertension:? Blood pressure today in office slightly elevated. He has not been able to tolerate hydrochlorothiazide due to dizziness. He continues on amlodipine 10 mg, does monitor his blood pressure at home and reports 110s over 70s. Vaccine: Up-to-date with pneumonia vaccine. Declines COVID and FLu vaccine. needs Tdap (had a reaction in the past to the vaccine) Colonoscopy: ?had a colonoscopy at age 47 at [facility]- reports normal findings Laboratory Tests 08/19/23 02/24/24 10/28/24 07:20 07:33 07:33 Creatinine 0.79 Cholesterol 265 H 279 H 242 H LDL Cholesterol, C alc 188 H 204 H 164 H PFSH Surgical History History of knee surgery Family History Father Pancreatic cancer Mother Hypertension Brother ESRD (end stage renal disease) Social History Housing: House Alcohol intake: current Alcohol intake frequency: a few times a month Alcohol type: wine and hard liquor Patient Tobacco Use Status: Current everyday Tobacco user Tobacco use type: Cigarette Cigarettes Per Day: 10 (due to stress) e-Cigarette/Vaping Use: Never Used Second Hand Smoke Exposure: No service: No Current occupational status: employed 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 1. Little interest or pleasure in doing things: not at all 2. Feeling down, depressed, or hopeless: not at all 3. Trouble falling or staying asleep, or sleeping too much: not at all 4. Feeling tired or having little energy: not at all 5. Poor appetite or overeating: not at all 6. Feeling bad about yourself - or that you are a failure or have let yourself or your family down: not at all 7. Trouble concentrating on things, such as reading the newspaper or watching television: not at all 8. Moving or speaking so slowly that other people could have noticed. Or the opposite - being so fidgety or restless that you have been moving around a lot more than usual: not at all 9. Thoughts that you would be better off or of hurting yourself in some way: not at all Total score: 0 Depression Screening Interpretation: Negative Depression Screening Done: Yes 33810 - PHQ-9 Billing: Yes Source: Developed by Drs. Horacio Branham, Rebecca Layton, Pranav Salmeron and colleagues, with an educational leigh from [employer] Thrive Questionnaire Date Thrive assessed: 10/29/24 I am a: Patient What is your living situation today?: I have a steady place to live Within the past 12 months, did the food you bought not last and you didn't have the money to get more?: I choose not to answer this question Within the past 12 months, did you worry whether your food would run out before you got money to buy more?: I choose not to answer this question Do you have trouble paying for medicines?: I choose not to answer this question Do you have trouble getting transportation to medical appointments?: I choose not to answer this question Do you have trouble paying your heating and electricity bill?: I choose not to answer this question Do you have trouble taking care of your child, family member or friend?: I choose not to answer this question Do you have trouble with day-to-day activities such as bathing, preparing meals, shopping, managing finances, etc.?: I choose not to answer this question Are you currently unemployed and looking for a job?: I choose not to answer this question Are you interested in more education?: I choose not to answer this question Please select the resources that you would like help with: None Currently or been in a relationship where the following occur: I choose not to answer THRIVE Score: 0 AUDIT C Alcohol Use Questionnaire (AUDIT-C) 1. How often do you have a drink containing alcohol?: Never 3. How often do you have six or more drinks on one occasion?: Never Total Score: 0 BRETT-7 AMB Questionnaire BRETT-7 Date BRETT - 7 assessed: 10/29/24 Feeling nervous, anxious, or on edge: 0 = Not at all Not being able to stop or control worryin = Not at all Worrying too much about different things: 0 = Not at all Trouble relaxin = Not at all Being so restless that it is hard to sit still: 0 = Not at all Becoming easily annoyed or irritable: 0 = Not at all Feeling afraid as if something awful might happen: 0 = Not at all Total BRETT-7 score (0-4 normal; 5-9 mild; 10-14 moderate; 15-21 severe): 0 Source: Developed by Drs. Horacio Branham, Rebecca Layton, Pranav Salmeron and colleagues, with an educational leigh from [employer] BRETT-7 Assessment Billing BRETT-7 Assessment Tool: BRETT-7 Assessment 49866 Review of Systems Const Denies body aches, Denies chills, Denies excessive sweating, Denies fatigue, Denies fever(s) and Denies headache(s) Eyes Denies blurry vision ENT Denies dysphagia, Denies vertigo, Denies dizziness, Denies headache(s), Denies hearing loss and Denies tinnitus Card Denies chest pain, Denies chest pain with activity, Denies syncope, Denies irregular heart rhythm and Denies dyspnea Resp Denies chest congestion, Denies cough, Denies hemoptysis, Denies dyspnea and Denies wheezing GI Denies abdominal pain, Denies melena, Denies hematochezia, Denies coffee ground emesis, Denies dysphagia, Denies diarrhea, Denies nausea and Denies vomiting Denies difficulty urinating, Denies dysuria, Denies urinary frequency, Denies urinary hesitancy and Denies urinary urgency Musc Denies arthralgias, Denies limited range of motion, Denies muscle cramps and Denies muscle weakness Skin/Breast Denies rash and Denies skin ulcer Neuro Denies Abnormal speech present, Denies confusion, Denies vertigo, Denies dizziness, Denies syncope, Denies headache(s), Denies memory loss and Denies seizure-like activity Psych Denies anxiety, Denies confusion, Denies depression, Denies memory loss, Denies panic attacks and Denies paranoia Endo Denies excessive sweating, Denies fatigue, Denies flushing, Denies polydipsia and Denies polyuria Aller/Immun Denies wheezing Physical exam (Primary Care) Vital Signs: Last Vital Signs Temp 97.1 F 10/29/24 10:15 Pulse 67 10/29/24 10:15 BP 142/86 H 10/29/24 10:15 Pulse Ox 99 10/29/24 10:15 Oxygen Delivery Method Room Air 10/29/24 10:15 BMI result Body Mass Index 27.8 Tobacco/Smoking Status: Tobacco use Status Tobacco use date assessed 10/29/24 10/29/24 10:24 Patient Tobacco Use Status Current everyday Tobacco 10/29/24 10:15 Tobacco use type Cigarette 10/29/24 10:15 e-Cigarette/Vaping Use Never Used 10/29/24 10:15 Are you ready to quit: No Tobacco cessation counseling provided: Yes Items discussed: Nicotine replacement Relapse Prevention: discussed the importance of a supportive environment, discussed negative mood or depression after quitting, weight gain after smoking is common and discussed dietary, exercise and/or lifestyle changes Number of minutes spent counselin CPT code: 78790 - 4-10 Minutes PHQ-9: PHQ-9 Score PHQ-9: Total score 0 10/29/24 10:15 Depression Screening Interpretation: Negative Thrive Assessment: Date of Thrive Assessment Date Thrive assessed 10/29/24 10/29/24 10:15 Currently or been in a relationship where the following occur: I choose not to answer Const General: cooperative, comfortable, no acute distress, alert and awake; No confusion Orientation/consciousness: oriented to person, oriented to place, patient oriented x3 and No confusion HENMT Head: Yes normocephalic Ears: external ears normal and TM's normal bilaterally Face and sinus: No sinus tenderness Mouth: Normal oral and palatal mucosa present and tongue normal Teeth and gingiva: dentition normal and gingiva normal Throat: Yes posterior oropharynx normal, Yes tonsils normal and Yes uvula midline Eyes Conjunctivae: conjunctivae normal Sclerae: sclerae normal Pupils: Equal, round and reactive pupils present EOM: EOMs intact bilaterally Direct Ophthalmoscopy: No no photophobia Neck Neck: Yes no lymphadenopathy, No tender and Yes no JVD Thyroid: Thyroid normal Carotids: no bruits Chest Chest palpation & inspection: no tenderness Resp Effort & Inspection: normal respiratory effort, no audible wheezes, not labored and no stridor Auscultation: no crackles, no rales, no rhonchi and no wheezes Cardio Jugular venous distension: no JVD Rate: regular rate, not bradycardic and not tachycardic Rhythm: regular rhythm Bruits: no carotid bruits Peripheral pulses: Peripheral pulses 2+ throughout GI Inspection: Yes normal to inspection, No abdominal wall ecchymosis and No visible herniation Palpation (GI): Soft to palpation, nontender, no guarding, not rigid and No hepatosplenomegaly present Auscultation: normoactive bowel sounds General: Yes no CVA tenderness Back/Spine/Pelvis Back: no CVA tenderness and No back tenderness Cervical Spine: cervical ROM normal Thoracic/Lumbar Spine: thoracic and lumbar spine normal to inspection, straight leg raise negative bilaterally, No thoraco-lumbar ROM limited and No lumbar spinal tenderness Skin Lesions: no lesions Rashes: no rashes Wounds: no wounds Neuro General: oriented to person, oriented to place, patient oriented x3, CN's II-XI intact bilaterally and No confusion Cranial nerves: Yes Equal, round and reactive pupils present and Yes Normal accommodation reflex present Cognition (Neuro): normal cognition Speech: No Abnormal speech present Gait exam (Neuro): Normal gait present Motor exam (neuro): 5/5 motor strength present throughout Extrem Other: Right upper extremity: full ROM; no cyanosis Left upper extremity: full ROM; no cyanosis Right lower extremity: no edema Left lower extremity: no edema Psych Appearance: grossly normal Mental Status: mental status grossly normal Affect: normal affect Attitude: cooperative Thought process: Normal thought process present Coding Level of Care Code Est Pt Prev Care 40-64y(71737) Diagnoses Annual physical exam Z00.00 Essential hypertension I10 Hypertension type: essential hypertension Mixed hyperlipidemia E78.2 Hyperlipidemia type: mixed hyperlipidemia Tobacco dependence F17.200 Venous dermatitis I87.2 Symptomatic varicose veins of both lower extremities I83.893 Additional Codes BRETT-7 Assessment Billing - BRETT-7 Assessment Tool: BRETT-7 Assessment 59446 ([id number]) PHQ-9 - 99770 - PHQ-9 Billing: Yes ([id number]) Vital Signs *Quality* - CPT code: 46910 - 4-10 Minutes ([id number]) Assessment & Plan Assessment & Plan (1) Annual physical exam: Code(s): Z00.00 - Encounter for general adult medical examination without abnormal findings Category: Medical Plan: as per HPI (2) HTN (hypertension): Code(s): I10 - Essential (primary) hypertension Category: Medical Qualifiers: Hypertension type: essential hypertension Qualified Code(s): I10 - Essential (primary) hypertension Plan: Patient's blood pressure elevated today in office. He continues on amlodipine 10 mg and reports blood pressures at home are 110 over 70s. Otherwise denies any chest discomfort, dizziness or headaches. Goal blood pressures to be below 140/90 (3) HLD (hyperlipidemia): Code(s): E78.5 - Hyperlipidemia, unspecified Category: Medical Qualifiers: Hyperlipidemia type: mixed hyperlipidemia Qualified Code(s): E78.2 - Mixed hyperlipidemia Plan: Patient's most recent lipid panel showing improved total cholesterol and LDL. Has been making some dietary modifications He continues on atorvastatin 40. He will get fasting labs done in if LDL still significantly elevated will consider increasing atorvastatin to 80 mg. (4) Tobacco dependence: Code(s): F17.200 - Nicotine dependence, unspecified, uncomplicated Category: Medical Plan: He does admit to smoking 1-5 cigarettes per day depending on his stress level. He does understand he needs to completely quit smoking. He does have nicotine patches available to him (5) Venous dermatitis: Code(s): I87.2 - Venous insufficiency (chronic) (peripheral) Category: Medical Plan: Please see picture section Will supply patient with topical steroid to use on the affected areas on his legs. (6) Symptomatic varicose veins of both lower extremities: Code(s): I83.893 - Varicose veins of bilateral lower extremities with other complications Category: Medical Plan: Patient does have bilateral varicosities in his lower extremities. Does report cramping at times. He is interested in seeing a vascular surgeon to evaluate and treat the symptomatic varicose veins. Orders: Orders Microalbumin, Random (w Creat) Today I10 - Essential (primary) hypertension Lipid Panel Today E78.2 - Mixed hyperlipidemia Comprehensive [place]. Panel Fast Today E78.2 - Mixed hyperlipidemia Complete Blood Count no Diff Today I10 - Essential (primary) hypertension Referrals Vascular Surgery Referral I83.893 - Varicose veins of bilateral lower extremities with other complications Medications: New blood pressure monitor As directed 1 ea 0RF I10 - Essential (primary) hypertension triamcinolone acetonide 0.5% 1 appl topical DAILY 30 days 15 grams 1RF I87.2 - Venous insufficiency (chronic) (peripheral) Discontinued methylprednisolone (Medrol (Ehsan)) Discontinued Reason: Doctor's Order PO PER PKG DIR 21 ea 0RF Patient Instructions: Goal: Blood pressure to be below 140/90, LDL to be below 130 Barriers: Adherence to healthy eating habits and physical activity
[2024-10-29 10:15] VITALS: BP 142/86; PULSE 67; TEMP 36.2; O2SAT 99; BMI 27.8
== END 2024-10-29 11:02 | disposition home or self-care (01) ==
LOC: HO.HMCH 10:08
PROVIDERS: PCP Physician Assistant; Visit Provider Physician Assistant
DX: Z00.00 Encounter for general adult medical examination without abnormal findings (principal); I10 Essential (primary) hypertension; E78.2 Mixed hyperlipidemia; F17.200 Nicotine dependence, unspecified, uncomplicated; I87.2 Venous insufficiency (chronic) (peripheral); I83.893 Varicose veins of bilateral lower extremities with other complications

== ENCOUNTER → 2024-10-29 10:07 | Outpatient (BNVA) | payer OTHER, SELFPAY | PROVIDERS: PCP Physician Assistant; Visit Provider Physician Assistant | DX: Z00.00 Encounter for general adult medical examination without abnormal findings (principal); E78.2 Mixed hyperlipidemia; I87.2 Venous insufficiency (chronic) (peripheral); I83.893 Varicose veins of bilateral lower extremities with other complications; F17.200 Nicotine dependence, unspecified, uncomplicated; Z71.6 Tobacco abuse counseling | CPT/HCPCS: 96127; 99396 ==

== ENCOUNTER 2024-11-03 11:26 | Outpatient (AMB) | payer OTHER, SELFPAY ==
--- NOTE | 2024-11-03 11:42 | MHC.OFFVIS ---
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 Patient states he has always had varicose veins in both legs but that in the last two months his veins has gotten worse. States they are larger, no pain. They are itchy. Accompanied by: Self / Same As Patient Allergies Tetanus Vaccines and Toxoid Allergy (Unknown, Verified 11/03/24 11:46) Unknown hydrochlorothiazide Adverse Reaction (Intermediate, Verified 11/03/24 11:46) Dizziness HPI HPI GRAY TENDER/[facility] referral for BLE VV: Details: Tommy, a very pleasant 54yo male patient, is presenting today on a referral from his PCP for concerns of worsening VV. He states he has had veins that have been popping out for most of his life; however, in the last 2m they have become more itchy and uncomfortable. Complaints include itching/discomfort over the varicosities and slight swelling of lower extremities. It has been affecting their daily activities including working, standing, and physical activity. It is noted more so in the left leg; however, he does have complaints in the right leg. Patient denies any previous venous surgery or injections. Patient denies any history of DVT/ PE. Patient denies any history of phlebitis. Trial of compression includes - compression socks with little relief. He states his massage machine helps. They now present for vascular evaluation regarding their varicose veins. 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 Current occupational exposures/hazards: No Cognitive needs: No Hearing needs: No Vision needs: No Review of Systems Const Reports as per HPI and Denies weakness ENT Reports Normal hearing present and Denies dizziness Card Reports as per HPI, Denies chest pain, Denies chest pain at rest, Denies chest pain with activity, Denies dyspnea and Denies dyspnea on exertion Resp Reports as per HPI, Denies cough, Denies dyspnea and Denies dyspnea on exertion GI Reports as per HPI, Denies abdominal pain, Denies nausea and Denies vomiting Musc Denies numbness Skin/Breast Reports as per HPI, Denies erythema and Denies wounds Neuro Reports Normal hearing present, Denies dizziness, Denies numbness, Denies Sensory deficit (Neuro) and Denies weakness Psych Reports no additional complaints Endo Reports no additional complaints Physical Exam Const General: healthy appearing and no acute distress Orientation/consciousness: patient oriented x3 HEENT Head: Yes normal to inspection Ears: hearing grossly normal bilaterally Mouth: Normal oral and palatal mucosa present Resp Effort & Inspection: normal respiratory effort and able to speak in complete sentences Auscultation: clear to auscultation bilaterally Cardio Jugular venous distension: no JVD Rate: regular rate Rhythm: regular rhythm Heart sounds: S1 normal heart sound present and S2 normal heart sound present Bruits: no abdominal aortic bruits, no carotid bruits, no femoral bruits and no renal bruits Peripheral pulses: Peripheral pulses 2+ throughout GI Inspection: Yes normal to inspection Palpation (GI): No Abdominal aortic bruit present Skin General skin exam: no rashes or lesions noted Wounds: no wounds Hair: normal Neuro General: patient oriented x3 Cranial nerves: Yes Normal hearing present Cognition (Neuro): normal cognition Gait exam (Neuro): Normal gait present Motor exam (neuro): 5/5 motor strength present throughout Sensory Exam: No Sensory deficit (Neuro) Extrem Other: Left lower extremity: several rope-like varicosities on the inner upper thigh, appx 4-5cm long. 3 spots over the varicosities, where the pt states he scratched; they are scabbing over. No bleeding/drainage noted. Smaller rope-like varicosities noted behind the knee. Right lower extremity: smaller, appx 2cm rope-like varicosities noted behind the knee. Bilateral lower extremities: trace peripheral edema noted. CEAP: C - 3 E - primary A - superficial P - reflux General: Yes normal to inspection, Yes full ROM, Yes capillary refill normal and Yes normal gait Assessment & Plan Assessment & Plan (1) Varicose veins of both lower extremities with inflammation: Code(s): I83.11 - Varicose veins of right lower extremity with inflammation; I83.12 - Varicose veins of left lower extremity with inflammation Category: Medical Plan: Tommy is presenting today on a referral from his PCP for concerns of VV, worsening over the last 2m. In short, the patient has evidence of venous insufficiency. I have discussed the pathophysiology with the patient. In addition I have provided informational material regarding venous disease to the patient. We have discussed conservative measures including compression, elevation, and exercise. We were able to provide him with some compression socks and discussed the importance of wearing them, particularly when he is working long shifts/on his feet for lengthy periods of time. I have taken the liberty of ordering venous insufficiency testing with the patient. They will follow up with me after testing. The patient had an opportunity to ask questions regarding the treatment plan. All questions were answered. Imaging studies, laboratory studies and physical exam results were discussed and reviewed in detail. No major barriers to understanding were identified. The patient expressed understanding and agreement with the above treatment plan. The patient is aware they should contact our office by phone for worsening of the current condition or the appearance of new symptoms. Thank you for allowing me to participate in the vascular care of this patient. If you have any questions or concerns regarding the treatment for the above condition please do not hesitate to contact me. The office telephone contact is [phone]. This note is constructed using voice recognition software. While every effort has been made to ensure accuracy, medical insurance claims specialist errors may have been included. Thank you for allowing me to participate in the care of your patient. Yours sincerely, ROBERTO Millan Orders: Orders US venous duplex LE BI 1 Week I83.11 - Varicose veins of right lower extremity with inflammation, I83.12 - Varicose veins of left lower extremity with inflammation Coding Level of Care Code New Pt Level 4 (49729) Diagnoses Varicose veins of both lower extremities with inflammation I83.11; I83.12
== END 2024-11-03 12:07 | disposition home or self-care (01) ==
LOC: HO.HVS 11:26
PROVIDERS: PCP Physician Assistant; Visit Provider Physician Assistant Surgical
DX: I83.11 Varicose veins of right lower extremity with inflammation (principal); I83.12 Varicose veins of left lower extremity with inflammation
CPT/HCPCS: 99204

== ENCOUNTER → 2024-11-03 11:26 | Outpatient (BNVA) | payer OTHER, SELFPAY | PROVIDERS: PCP Physician Assistant; Visit Provider Physician Assistant Surgical | DX: I83.11 Varicose veins of right lower extremity with inflammation (principal); I83.12 Varicose veins of left lower extremity with inflammation; F17.210 Nicotine dependence, cigarettes, uncomplicated | CPT/HCPCS: 99202 ==

== ENCOUNTER 2024-11-23 13:33 | Outpatient (REF) | payer OTHER, SELFPAY ==
--- NOTE | ~2024-11-23 | US_ITS ---
EXAMINATION: US LOWER EXTREMITY VENOUS (REFLUX EXAM), BILATERAL CLINICAL INFORMATION: Varices. COMPARISON: None. TECHNIQUE: Color flow triplex imaging and compression Doppler was performed to evaluate both the deep and the superficial systems bilaterally. To evaluate the superficial system, the examination was performed in the upright position. Color-flow Doppler ultrasound and compression ultrasound were utilized. In addition, maneuvers were utilized to demonstrate reflux. FINDINGS: 1. DEEP VENOUS ULTRASOUND OF THE RIGHT LOWER EXTREMITY: Common Femoral Vein: Compressible, normal respiratory variation and augmented flow. Femoral Vein: Compressible, normal color flow and augmentation. Popliteal Vein: Compressible, normal augmentation. Deep Reflux: There is no evidence of reflux in the deep system in either the common femoral vein, superficial femoral or the popliteal vein. There is no evidence of a Meade's cyst. 2. SUPERFICIAL ULTRASOUND WITH DOPPLER OF RIGHT LOWER EXTREMITY: GREAT SAPHENOUS VEIN: Saphenofemoral Junction: 0.8 cm; Reflux: 0 ms Proximal Thigh: 0.9 cm; Reflux: 0 ms Mid Thigh: 0.5 cm; Reflux: 2380 ms Distal Thigh: 0.8 cm; Reflux: 2100 ms At Knee: 0.6 cm; Reflux: 2384 ms Proximal Calf: 0.5 cm; Reflux: 1684 ms Mid Calf: 0.3 cm; Reflux: 0 ms Distal Calf: 0.4 cm; Reflux: 0 ms DUPLICATED MEDIAL GREAT SAPHENOUS VEIN: Diameter: None imaged Reflux: NA DUPLICATED LATERAL GREAT SAPHENOUS VEIN: Diameter: None imaged Reflux: NA SMALL SAPHENOUS VEIN: Saphenopopliteal Junction: 0.5 cm; Reflux: 0 ms Proximal: 0.5 cm; Reflux: 0 ms Distal: 0.2 cm; Reflux: 0 ms VEIN OF GIACOMINI: Size: NA Reflux: NA PERFORATORS: Location: Small saphenous vein mid segment. Great saphenous vein, distal thigh and proximal calf. Size: 0.1-0.2 cm. Reflux: NA VARICOSITIES: Location: Small saphenous vein, proximal segment. Great saphenous vein at the knee and proximal calf. Size: 0.3-0.7 cm. Reflux: 2160 ms at the knee and 1860 ms in the proximal calf. 3. DEEP VENOUS ULTRASOUND OF THE LEFT LOWER EXTREMITY: Common Femoral Vein: Compressible, normal respiratory variation and augmented flow. Femoral Vein: Compressible, normal color flow and augmentation. Popliteal Vein: Compressible, normal augmentation. Deep Reflux: There is no evidence of reflux in the deep system in either the common femoral vein, superficial femoral or the popliteal vein. There is no evidence of a Meade's cyst. 4. SUPERFICIAL ULTRASOUND WITH DOPPLER OF LEFT LOWER EXTREMITY: GREAT SAPHENOUS VEIN: Saphenofemoral Junction: 0.8 cm; Reflux: 0 ms Proximal Thigh: 0.7 cm; Reflux: 996 ms Mid Thigh: 0.4 cm; Reflux: 836 ms Distal Thigh: 0.4 cm; Reflux: 0 ms At Knee: 0.3 cm; Reflux: 0 ms Proximal Calf: 0.4 cm; Reflux: 0 ms Mid Calf: 0.3 cm; Reflux: 0 ms Distal Calf: 0.3 cm; Reflux: 0 ms DUPLICATED MEDIAL GREAT SAPHENOUS VEIN: Diameter: None imaged Reflux: NA DUPLICATED LATERAL GREAT SAPHENOUS VEIN: Diameter: None imaged. Reflux: NA SMALL SAPHENOUS VEIN: Saphenopopliteal Junction: 0.4 cm; Reflux: 0 ms Proximal: 0.4 cm; Reflux: 0 ms Distal: 0.2 cm; Reflux: 0 ms VEIN OF GIACOMINI: Size: NA Reflux: NA PERFORATORS: Location: Small saphenous vein, proximal segment. Great saphenous vein proximal thigh to the proximal calf. Size: 0.2-0.4 cm. Reflux: NA VARICOSITIES: Location: Small saphenous vein, proximal segment. Great saphenous vein mid thigh to the knee. Size: 0.3-0.5 cm. Reflux: 1900 ms and 2120 ms at the knee level. US/US venous insuf bilat IMPRESSION: Right: Venous insufficiency, great saphenous vein from the mid thigh to the proximal calf. Varices with reflux at the great saphenous vein mid and proximal calf level. Left: Venous insufficiency, great saphenous vein and the proximal to mid thigh. Varices with reflux at the knee level. Electronically signed by: Mathieu Tom MD 11/23/2024 03:17 PM EDT
== END 2024-11-23 13:34 | disposition home or self-care (01) ==
LOC: HO.US 13:33
PROVIDERS: PCP Physician Assistant; Visit Provider Physician Assistant Surgical
DX: I83.11 Varicose veins of right lower extremity with inflammation (principal); I83.12 Varicose veins of left lower extremity with inflammation
CPT/HCPCS: 93970

== ENCOUNTER → 2024-11-23 13:35 | Outpatient (BNV) | payer OTHER, SELFPAY | PROVIDERS: PCP Physician Assistant; Visit Provider Radiology Diagnostic Radiology | DX: I83.893 Varicose veins of bilateral lower extremities with other complications (principal) | CPT/HCPCS: 93970 ==

== ENCOUNTER 2024-12-01 11:21 | Outpatient (AMB) | payer OTHER, SELFPAY ==
--- NOTE | 2024-12-01 11:23 | A.OFFVIS_ITS ---
Intake Visit Reasons: follow up s/p US 11/23/24 Intake Note: Patient presents for follow up US performed on 11/23/24. Patient states he has been experiencing itching on his left leg. Accompanied by: Self / Same As Patient Allergies Tetanus Vaccines and Toxoid Allergy (Unknown, Verified 12/01/24 11:27) Unknown hydrochlorothiazide Adverse Reaction (Intermediate, Verified 12/01/24 11:27) Dizziness HPI HPI follow up s/p US 11/23/24: Details: The patient is a 54-year-old male presenting with concerns of venous insufficiency. He reports a progressive issue of prominent veins with increased swelling, primarily in the right leg. However, diagnostic testing confirmed venous insufficiency in both legs. The patient has a long history of smoking, consuming about five to six cigarettes a day, which might contribute to vascular issues. He continues to have swelling and discomfort on bilateral lower extremity despite use of compression. He is more concerned about left than right. He now presents for follow-up with venous insufficiency testing. 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 Current occupational exposures/hazards: No Cognitive needs: No Hearing needs: No Vision needs: No Review of Systems Const Reports as per HPI ENT Reports no additional complaints Card Denies chest pain, Denies chest pain at rest and Denies chest pain with activity Resp Denies chest congestion and Denies cough GI Reports no additional complaints Musc Details: pain over varicosities, aching of lower extremities, swelling, cramping, heaviness and tiredness, itching Denies abnormal gait Skin/Breast Reports pruritus and Denies wounds Neuro Reports no additional complaints and Denies abnormal gait Psych Denies no additional complaints Physical Exam Const General: cooperative, healthy appearing and comfortable Orientation/consciousness: oriented to person, oriented to place and oriented to time Neck Carotids: no bruits Chest Chest palpation & inspection: normal inspection of the chest and normal palpation of entire chest wall Resp Effort & Inspection: normal respiratory effort and able to speak in complete sentences Cardio Rate: regular rate Heart sounds: S1 normal heart sound present and S2 normal heart sound present Peripheral pulses: Peripheral pulses 2+ throughout GI Inspection: Yes normal to inspection Skin Other: +2 edema, large rope-like varicosities greater than 4 mm CEAP Classification C4 - skin color changes Ep - Etiology Primary As - superficial veins P - reflux General skin exam: dry skin Neuro General: oriented to person, oriented to place and oriented to time Extrem Right lower extremity: full ROM, normal capillary refill and edema Left lower extremity: full ROM, normal capillary refill and edema Psych Mental Status: mental status grossly normal Results Reviewed Results Reviewed: Brief summary of venous insufficiency testing is as follows: right great saphenous vein: Positive right small saphenous vein: negative right accessory vein: none present left great saphenous vein: Positive left small saphenous vein: negative left accessory vein: none present Please note there is no evidence of any venous aneurysms or significant tortuosity Assessment & Plan Assessment & Plan (1) Varicose veins of left lower extremity with inflammation: Code(s): I83.12 - Varicose veins of left lower extremity with inflammation Category: Medical Plan: This patient has varicose veins with inflammation. They continue to be a source of discomfort for the patient. The patient has tried conservative treatment with compression, leg elevation and exercise program for over 3 months time. They have been compliant with all treatment. This has provided minimal relief for the patient. I do not anticipate this course of treatment will alter the underlying etiology. The patient has been scheduled for lower extremity venous treatment inclusive of --- left great saphenous vein radiofrequency ablation. Risks, benefits, and complications of this procedure has been discussed in detail with the patient including but not limited to bleeding, infection, and the development of a DVT. The patient has demonstrated a clear understanding and has consented. We will schedule the patient as soon as possible. Thank you for allowing us to participate in this patient's care. If there are any questions or concerns please do not hesitate to contact us. Coding Level of Care Code Est Pt Level 4 (85964) Diagnoses Varicose veins of left lower extremity with inflammation I83.12
== END 2024-12-01 11:41 | disposition home or self-care (01) ==
LOC: HO.HVS 11:22
PROVIDERS: PCP Physician Assistant; Visit Provider Surgery Vascular Surgery
DX: I83.12 Varicose veins of left lower extremity with inflammation (principal)
CPT/HCPCS: 99214

== ENCOUNTER → 2024-12-01 11:21 | Outpatient (BNVA) | payer OTHER, SELFPAY | PROVIDERS: PCP Physician Assistant; Visit Provider Surgery Vascular Surgery | DX: I83.12 Varicose veins of left lower extremity with inflammation (principal) | CPT/HCPCS: 99212 ==

== ENCOUNTER 2024-12-18 12:25 | Outpatient (AMB) | payer OTHER, SELFPAY ==
--- NOTE | 2024-12-18 12:27 | MHC.OFFVIS ---
Intake Visit Reasons: Left GSV RFA Intake Note: Left GSV RFA. Accompanied by: Self / Same As Patient Allergies Tetanus Vaccines and Toxoid Allergy (Unknown, Verified 12/18/24 12:27) Unknown hydrochlorothiazide Adverse Reaction (Intermediate, Verified 12/18/24 12:27) Dizziness PFSH Surgical History History of knee surgery Family History Father Pancreatic cancer Mother Hypertension Brother ESRD (end stage renal disease) Social History Housing: House Alcohol intake: current Alcohol intake frequency: a few times a month Alcohol type: wine and hard liquor Patient Tobacco Use Status: Current everyday Tobacco user Tobacco use type: Cigarette Cigarettes Per Day: 10 (due to stress) e-Cigarette/Vaping Use: Never Used Second Hand Smoke Exposure: No service: No Current occupational status: employed 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 Anesthesia: Local infiltration 5 cc, Tumescent 400 cc. Estimated Blood Loss: minimal Specimen: Varicose veins The patient was transferred to the procedure suite and the insufficient saphenous vein was mapped by ultrasound and diagrammed on the overlying skin. The depth and diameter of the vein(s) to be treated was documented. The varicose tributary veins and suitable access sites were identified and mapped as well. The patient was then positioned supine on the procedure table. The affected limb was prepped and draped in the usual sterile fashion. The RF catheter was placed on the sterile field, flushed and wiped down, prepared, and connected by a sterile cable. The patient was placed in supine position and local anesthesia was instilled in the skin overlying the access site. A skin incision was made overlying the identified and mapped great saphenous vein entry site. The vein was accessed using ultrasound guidance and the Seldinger technique, a guide wire was introduced through the needle, which was then exchanged over the guide wire for a 6F sheath, which was secured in place. The guide wire was removed and the sheath was flushed. The RF catheter was placed into the vein through the sheath and preferentially, imaging was used to place the catheter tip just inferior to the superficial epigastric vein to preserve normal physiological flow in that vein. Additionally, it was confirmed by ultrasound guidance that the catheter tip was also placed a minimum of 1.5cm distal to the saphenofemoral junction. After the RF catheter position was verified by ultrasound, tumescent anesthesia was infiltrated, under ultrasound guidance, precisely into the perivenous compartment along the entire length of vein from the entry site to the saphenofemoral junction until a halo of fluid was noted around the vein. The patient was then placed in supine position to further exsanguinate the superficial venous system. After RF catheter position was again confirmed with ultrasound imaging, and under direct external compression along the length of the heating element, RF energy was applied. The vein was segmentally ablated by heating a 8 cm segment and then indexing the catheter forward by 7.5 cm until the treatment length is completed. Device temperature was maintained at 120 plus or minus 5 degrees C with an initial power level of 40W dropping to below 20W for each treatment. Total vein length treated 24 cm Total cycles of RF 4. Repeat ultrasound of the saphenous vein was performed, confirming successful treatment. The catheter and sheath were withdrawn and hemostasis established with direct pressure. After assuring hemostasis, the skin incision over the saphenous vein was closed with a bandage and a compression wrap, and/ or graduated compression stocking was applied from the level of the foot to the most proximal level of the thigh. 47801 - Endovenous RF, 1st Vein All charges added?: Procedure code (CPT) selection complete Assessment & Plan Assessment & Plan (1) Varicose veins of left lower extremity with inflammation: Comment: 12/18/2024 - left great saphenous vein radiofrequency ablation Code(s): I83.12 - Varicose veins of left lower extremity with inflammation Category: Medical Plan: See op note Coding Level of Care Code Procedure Only Diagnoses Varicose veins of left lower extremity with inflammation I83.12 CPT Codes Details - Vascular 1: 95836 - Endovenous RF, 1st Vein ([id number])
== END 2024-12-18 13:05 | disposition home or self-care (01) ==
LOC: HO.HVS 12:26
PROVIDERS: PCP Physician Assistant; Visit Provider Surgery Vascular Surgery
DX: I83.12 Varicose veins of left lower extremity with inflammation (principal)
CPT/HCPCS: 36475

== ENCOUNTER → 2024-12-18 12:25 | Outpatient (BNVA) | payer OTHER, SELFPAY | PROVIDERS: PCP Physician Assistant; Visit Provider Surgery Vascular Surgery | DX: I83.12 Varicose veins of left lower extremity with inflammation (principal) | CPT/HCPCS: 36475; J2003; J2004 ==

== ENCOUNTER 2024-12-31 10:51 | Outpatient (AMB) | payer OTHER, SELFPAY ==
--- NOTE | 2024-12-31 10:58 | MHC.OFFVIS ---
Vital Signs 12/31/24 10:59 Height 5 ft 11 in Weight 199 lb BMI 27.8 Intake Visit Reasons: 2 week follow up Left GSV RFA 12/18/24 Intake Note: 2 week follow up Left GSV RFA 12/18/24. Pt states that he has some tightness in the thigh but feels better and now right LE is bothering him more. He stands for work. [employer] Required: No Accompanied by: Self / Same As Patient Allergies Tetanus Vaccines and Toxoid Allergy (Unknown, Verified 12/31/24 11:03) Unknown hydrochlorothiazide Adverse Reaction (Intermediate, Verified 12/31/24 11:03) Dizziness HPI HPI 2 week follow up Left GSV RFA 12/18/24: Details: The patient is a 54-year-old male presenting with a follow-up evaluation after left great saphenous vein ablation performed two weeks ago. He reports sensation improvement; however, groin soreness persists, accompanied by redness at the site. During a recent concert, he noticed an increase in itchiness in the left leg and experienced occasional numbness when sitting, particularly on stairs. The patient acknowledges advised use of warm compresses and medications such as Advil or Motrin for symptom management. He has observed a reduction in leg heaviness and swelling following the procedure. He is now concerned about his right lower extremity which appears to have similar preprocedure symptoms as the left side. 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 Current occupational exposures/hazards: No Cognitive needs: No Hearing needs: No Vision needs: No Review of Systems Const Reports as per HPI ENT Reports no additional complaints Card Denies chest pain, Denies chest pain at rest and Denies chest pain with activity Resp Denies chest congestion and Denies cough GI Reports no additional complaints Musc Details: pain over varicosities, aching of lower extremities, swelling, cramping, heaviness and tiredness, itching Denies abnormal gait Skin/Breast Reports pruritus and Denies wounds Neuro Reports no additional complaints and Denies abnormal gait Psych Denies no additional complaints Physical Exam Vital Signs: BMI result Body Mass Index 27.8 Const General: cooperative, healthy appearing and comfortable Orientation/consciousness: oriented to person, oriented to place and oriented to time Neck Carotids: no bruits Chest Chest palpation & inspection: normal inspection of the chest and normal palpation of entire chest wall Resp Effort & Inspection: normal respiratory effort and able to speak in complete sentences Cardio Rate: regular rate Heart sounds: S1 normal heart sound present and S2 normal heart sound present Peripheral pulses: Peripheral pulses 2+ throughout GI Inspection: Yes normal to inspection Skin Other: +2 edema, large rope-like varicosities greater than 4 mm CEAP Classification C4 - skin color changes Ep - Etiology Primary As - superficial veins P - reflux General skin exam: dry skin Neuro General: oriented to person, oriented to place and oriented to time Extrem Right lower extremity: full ROM, normal capillary refill and edema Left lower extremity: full ROM, normal capillary refill and edema Psych Mental Status: mental status grossly normal Results Reviewed Results Reviewed: Brief summary of venous insufficiency testing is as follows: right great saphenous vein: Ablated right small saphenous vein: negative right accessory vein: none present left great saphenous vein: Positive left small saphenous vein: negative left accessory vein: none present Please note there is no evidence of any venous aneurysms or significant tortuosity Assessment & Plan Assessment & Plan (1) Varicose veins of left lower extremity with inflammation: Comment: 12/18/2024 - left great saphenous vein radiofrequency ablation Code(s): I83.12 - Varicose veins of left lower extremity with inflammation Category: Medical Plan: Doing well see below (2) Varicose veins of right lower extremity with inflammation: Code(s): I83.11 - Varicose veins of right lower extremity with inflammation Category: Medical Plan: This patient has varicose veins with inflammation. They continue to be a source of discomfort for the patient. The patient has tried conservative treatment with compression, leg elevation and exercise program for over 3 months time. They have been compliant with all treatment. This has provided minimal relief for the patient. I do not anticipate this course of treatment will alter the underlying etiology. The patient has been scheduled for lower extremity venous treatment inclusive of --- right great saphenous vein radiofrequency ablation. Risks, benefits, and complications of this procedure has been discussed in detail with the patient including but not limited to bleeding, infection, and the development of a DVT. The patient has demonstrated a clear understanding and has consented. We will schedule the patient as soon as possible. Thank you for allowing us to participate in this patient's care. If there are any questions or concerns please do not hesitate to contact us. Coding Level of Care Code Est Pt Level 4 (33609) Diagnoses Varicose veins of left lower extremity with inflammation I83.12 Varicose veins of right lower extremity with inflammation I83.11
[2024-12-31 10:59] VITALS: BMI 27.8
== END 2024-12-31 11:50 | disposition home or self-care (01) ==
LOC: HO.HVS 10:51
PROVIDERS: PCP Physician Assistant; Visit Provider Surgery Vascular Surgery
DX: I83.12 Varicose veins of left lower extremity with inflammation (principal); I83.11 Varicose veins of right lower extremity with inflammation
CPT/HCPCS: 99214

== ENCOUNTER → 2024-12-31 10:51 | Outpatient (BNVA) | payer OTHER, SELFPAY | PROVIDERS: PCP Physician Assistant; Visit Provider Surgery Vascular Surgery | DX: I83.12 Varicose veins of left lower extremity with inflammation (principal); I83.11 Varicose veins of right lower extremity with inflammation | CPT/HCPCS: 99212 ==

== ENCOUNTER 2025-01-08 08:41 | Outpatient (AMB) | payer OTHER, SELFPAY ==
[2025-01-08 08:48] VITALS: BMI 27.8
--- NOTE | 2025-01-08 08:48 | A.OFFVIS_ITS ---
Vital Signs 01/08/25 08:48 Height 5 ft 11 in Weight 199 lb BMI 27.8 Intake Visit Reasons: R RFA Private Duty Lpn Required: No Accompanied by: Self / Same As Patient Allergies Tetanus Vaccines and Toxoid Allergy (Unknown, Verified 01/08/25 08:48) Unknown hydrochlorothiazide Adverse Reaction (Intermediate, Verified 01/08/25 08:48) Dizziness [facility] Surgical History History of knee surgery Family History Father Pancreatic cancer Mother Hypertension Brother ESRD (end stage renal disease) Social History Housing: House Alcohol intake: current Alcohol intake frequency: a few times a month Alcohol type: wine and hard liquor Patient Tobacco Use Status: Current everyday Tobacco user Tobacco use type: Cigarette Cigarettes Per Day: 10 (due to stress) e-Cigarette/Vaping Use: Never Used Second Hand Smoke Exposure: No service: No Current occupational status: employed 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 Anesthesia: Local infiltration 5 cc, Tumescent 400 cc. Estimated Blood Loss: minimal Specimen: Varicose veins The patient was transferred to the procedure suite and the insufficient saphenous vein was mapped by ultrasound and diagrammed on the overlying skin. The depth and diameter of the vein(s) to be treated was documented. The varicose tributary veins and suitable access sites were identified and mapped as well. The patient was then positioned supine on the procedure table. The affected limb was prepped and draped in the usual sterile fashion. The RF catheter was placed on the sterile field, flushed and wiped down, prepared, and connected by a sterile cable. The patient was placed in supine position and local anesthesia was instilled in the skin overlying the access site. A skin incision was made overlying the identified and mapped great saphenous vein entry site. The vein was accessed using ultrasound guidance and the Seldinger technique, a guide wire was introduced through the needle, which was then exchanged over the guide wire for a 6F sheath, which was secured in place. The guide wire was removed and the sheath was flushed. The RF catheter was placed into the vein through the sheath and preferentially, imaging was used to place the catheter tip just inferior to the superficial epigastric vein to preserve normal physiological flow in that vein. Additionally, it was confirmed by ultrasound guidance that the catheter tip was also placed a minimum of 1.5cm distal to the saphenofemoral junction. After the RF catheter position was verified by ultrasound, tumescent anesthesia was infiltrated, under ultrasound guidance, precisely into the perivenous compartment along the entire length of vein from the entry site to the saphenofemoral junction until a halo of fluid was noted around the vein. The patient was then placed in supine position to further exsanguinate the superficial venous system. After RF catheter position was again confirmed with ultrasound imaging, and under direct external compression along the length of the heating element, RF energy was applied. The vein was segmentally ablated by heating a 8 cm segment and then indexing the catheter forward by 7.5 cm until the treatment length is completed. Device temperature was maintained at 120 plus or minus 5 degrees C with an initial power level of 40W dropping to below 20W for each treatment. Total vein length treated 48 cm Total cycles of RF 7. Repeat ultrasound of the saphenous vein was performed, confirming successful treatment. The catheter and sheath were withdrawn and hemostasis established with direct pressure. After assuring hemostasis, the skin incision over the saphenous vein was closed with a bandage and a compression wrap, and/ or graduated compression stocking was applied from the level of the foot to the most proximal level of the thigh. 34033 - Endovenous RF, 1st Vein All charges added?: Procedure code (CPT) selection complete Assessment & Plan Assessment & Plan (1) Varicose veins of right lower extremity with inflammation: Comment: 01/08/2025 - right great saphenous vein radiofrequency ablation Code(s): I83.11 - Varicose veins of right lower extremity with inflammation Category: Medical Plan: See op note Coding Level of Care Code Procedure Only Diagnoses Varicose veins of right lower extremity with inflammation I83.11 CPT Codes Details - Vascular 1: 01912 - Endovenous RF, 1st Vein ([id number])
== END 2025-01-08 09:43 | disposition home or self-care (01) ==
LOC: HO.HVS 08:42
PROVIDERS: PCP Physician Assistant; Visit Provider Surgery Vascular Surgery
DX: I83.11 Varicose veins of right lower extremity with inflammation (principal)
CPT/HCPCS: 36475

== ENCOUNTER → 2025-01-08 08:41 | Outpatient (BNVA) | payer OTHER, SELFPAY | PROVIDERS: PCP Physician Assistant; Visit Provider Surgery Vascular Surgery | DX: I83.11 Varicose veins of right lower extremity with inflammation (principal); F17.210 Nicotine dependence, cigarettes, uncomplicated | CPT/HCPCS: 36475; J2003; J2004 ==

== ENCOUNTER 2025-01-21 11:08 | Outpatient (AMB) | payer OTHER, SELFPAY ==
--- NOTE | 2025-01-21 11:09 | MHC.OFFVIS ---
Vital Signs 01/21/25 11:10 Height 5 ft 11 in Weight 199 lb BMI 27.8 Intake Visit Reasons: 2 week follow up s/p R RFA Intake Note: Pt presents to the office today for a 2 week follow up s/p R RFA. Pt states his legs aches occasionally. Allergies Tetanus Vaccines and Toxoid Allergy (Unknown, Verified 01/21/25 11:10) Unknown hydrochlorothiazide Adverse Reaction (Intermediate, Verified 01/21/25 11:10) Dizziness HPI HPI 2 week follow up s/p R RFA: Details: The patient is a 54-year-old male presenting with a follow-up evaluation after left great saphenous vein ablation performed two weeks ago. He reports sensation improvement; however, groin soreness persists, accompanied by redness at the site. During a recent concert, he noticed an increase in itchiness in the left leg and experienced occasional numbness when sitting, particularly on stairs. The patient acknowledges advised use of warm compresses and medications such as Advil or Motrin for symptom management. He has observed a reduction in leg heaviness and swelling following the procedure. 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 Current occupational exposures/hazards: No Cognitive needs: No Hearing needs: No Vision needs: No Review of Systems Const All systems reviewed & are unremarkable except as noted in HPI and below Reports no additional complaints ENT Reports Normal hearing present Card Denies chest pain, Denies chest pain at rest, Denies chest pain with activity and Denies pedal edema Resp Denies cough GI Denies abdominal pain Musc Denies abnormal gait, Denies muscle cramps and Denies radiating pain into limb Skin/Breast Denies skin ulcer and Denies wounds Neuro Reports Normal hearing present and Denies abnormal gait Psych Reports no additional complaints Physical Exam Vital Signs: BMI result Body Mass Index 27.8 Const General: cooperative, healthy appearing and comfortable Orientation/consciousness: oriented to person, oriented to place and oriented to time HEENT Head: Yes normal to inspection Neck Neck: Yes normal visual inspection Carotids: no bruits Chest Chest palpation & inspection: normal inspection of the chest Resp Effort & Inspection: normal respiratory effort and able to speak in complete sentences Auscultation: clear to auscultation bilaterally, no crackles, no rales, no rhonchi and no wheezes Cardio Rate: regular rate Rhythm: regular rhythm Heart sounds: S1 normal heart sound present and S2 normal heart sound present Bruits: no carotid bruits Peripheral pulses: Peripheral pulses 2+ throughout GI Inspection: Yes normal to inspection Skin Wounds: no wounds Hair: normal Neuro General: oriented to person, oriented to place and oriented to time Cranial nerves: Yes CN's II-XII intact bilaterally and Yes Normal hearing present Cognition (Neuro): normal cognition Motor exam (neuro): 5/5 motor strength present throughout Extrem Other: venous exam: No significant superficial varicosities or spider telangiectasias, minimal edema General: No clubbing, No cyanosis and No edema Psych Appearance: grossly normal Mental Status: mental status grossly normal Speech and movement: Normal speech and movement present Assessment & Plan Assessment & Plan (1) Varicose veins of left lower extremity with inflammation: Comment: 12/18/2024 - left great saphenous vein radiofrequency ablation Code(s): I83.12 - Varicose veins of left lower extremity with inflammation Category: Medical Plan: See below (2) Varicose veins of right lower extremity with inflammation: Comment: 01/08/2025 - right great saphenous vein radiofrequency ablation Code(s): I83.11 - Varicose veins of right lower extremity with inflammation Category: Medical Plan: The patient has done extremely well with all venous treatments. Patient's may often experience postprocedure phlebitic episodes and I have discussed with the patient use of warm compresses and NSAIDS if tolerated for pain discomfort. In addition, I have discussed continued conservative measures including use of compression, leg elevation, and exercise. The patient was also given an information sheet regarding appropriate use of compression stockings and future purchases. Thank you for allowing us to care for your patient with venous disease. Coding Level of Care Code Est Pt Level 3 (35108) Diagnoses Varicose veins of left lower extremity with inflammation I83.12 Varicose veins of right lower extremity with inflammation I83.11
[2025-01-21 11:10] VITALS: BMI 27.8
== END 2025-01-21 11:27 | disposition home or self-care (01) ==
LOC: HO.HVS 11:09
PROVIDERS: PCP Physician Assistant; Visit Provider Surgery Vascular Surgery
DX: I83.12 Varicose veins of left lower extremity with inflammation (principal); I83.11 Varicose veins of right lower extremity with inflammation
CPT/HCPCS: 99213

== ENCOUNTER → 2025-01-21 11:08 | Outpatient (BNVA) | payer OTHER, SELFPAY | PROVIDERS: PCP Physician Assistant; Visit Provider Surgery Vascular Surgery | DX: I83.12 Varicose veins of left lower extremity with inflammation (principal); I83.11 Varicose veins of right lower extremity with inflammation | CPT/HCPCS: 99212 ==